=== PATIENT | male | born 1945 | race Caucasian/White ===

== ENCOUNTER 2016-12-31 09:47 | Inpatient (IN) | payer MEDICARE, BC ==
[2016-12-31] VITALS (12 sets, daily range): BP systolic 146–174; BP diastolic 85–93; PULSE 58–79; RESP 16–23; TEMP 97.6–98.9; O2SAT 95–99
[~2016-12-31] VITALS: Ht 188 cm; Wt 115.8 kg
--- NOTE | 2016-12-31 10:10 | PD ---
HPI Chief Complaint: Fall Time Seen by Provider: 09:58 Travel History International Travel<30 days: No Contact w/Intl Traveler<30days: No Traveled to known affect area: No History of Present Illness HPI 71yo M with PMH of HLD presents to the ED with c/o headache s/p fall yesterday at 3am. Pt was drinking water and loss his balance and fell backwards on hit his head on edge of j[place]uzzi. Pt denies any LOC but had occipital headache and did vomit once after. Pt felt better but started to have headache that is frontal this morning. Pt is still nauseous. Denies any fever, visual changes, focal weakness or numbness, chest pain, sob or abdominal pain. Pt denies any anticoagulation and takes aspirin 325mg PO daily. PFSH Past Medical History Hx Anticoagulant Therapy: No Cardiovascular Problems: Yes (CHOL) Diabetes: No Social History Tobacco Use: No Allergies-Medications (Allergen,Severity, Reaction): Coded Allergies: Ceftin (Verified Allergy, Severe, 12/31/16) Reported Meds & Prescriptions Reported Meds & Active Scripts Active Reported Flomax (Tamsulosin HCl) 0.4 Mg Cap 0.4 Mg PO HS Atorvastatin (Atorvastatin Calcium) 20 Mg Tab 20 Mg PO HS Omeprazole 20 Mg Tab 20 Mg PO DAILY Review of Systems Except as stated in HPI: all other systems reviewed are Neg Physical Exam Narrative GENERAL: 71yo M not in distress. SKIN: Warm and dry. HEAD: Atraumatic. Normocephalic. +TTP right frontal region. EYES: Pupils equal and reactive at 3mm. EOMI. No scleral icterus. No injection or drainage. ENT: No hemotympanum or septal hematoma. NECK: No midline cervical spine ttp. CARDIOVASCULAR: Regular rate and rhythm. No murmur appreciated. RESPIRATORY: No accessory muscle use. Clear to auscultation. Breath sounds equal bilaterally. GASTROINTESTINAL: Abdomen soft, non-tender, nondistended. MUSCULOSKELETAL: No obvious deformities. No clubbing. No cyanosis. No edema. NEUROLOGICAL: Awake and alert. No obvious cranial nerve deficits. Motor grossly within normal limits. Normal speech. PSYCHIATRIC: Appropriate mood and affect; insight and judgment normal. Data Data Last Documented VS Vital Signs Date Time Temp Pulse Resp B/P Pulse Ox O2 Delivery O2 Flow Rate FiO2 12/31/16 11:00 72 16 153/90 97 Room Air 12/31/16 09:[address] Brain W/O Iv Contrast(Rout) (12/31/16 ) Ondansetron Odt (Zofran Odt) (12/31/16 10:15) Complete Blood Count With Diff (12/31/16 10:53) Basic Metabolic Panel (Bmp) (12/31/16 10:53) Prothrombin Time / Inr (Pt) (12/31/16 10:53) Act Partial Throm Time (Ptt) (12/31/16 10:53) Type And Screen (12/31/16 10:53) Consult Neurosurgery (12/31/16 ) Neuro Checks . ORDERED (12/31/16 11:12) Acetaminophen (Tylenol) (12/31/16 11:15) Admit Order (Ed Use Only) (12/31/16 11:35) Labs Laboratory Tests Test 12/31/16 11:05 White Blood Count 8.9 TH/MM3 Red Blood Count 4.39 MIL/MM3 Hemoglobin 14.4 GM/DL Hematocrit 43.1 % Mean Corpuscular Volume 98.2 FL Mean Corpuscular Hemoglobin 32.8 PG Mean Corpuscular Hemoglobin 33.5 % Concent Red Cell Distribution Width 12.8 % Platelet Count 177 TH/MM3 Mean Platelet Volume 7.5 FL Neutrophils (%) (Auto) 84.2 % Lymphocytes (%) (Auto) 8.6 % Monocytes (%) (Auto) 5.5 % Eosinophils (%) (Auto) 1.0 % Basophils (%) (Auto) 0.7 % Neutrophils # (Auto) 7.4 TH/MM3 Lymphocytes # (Auto) 0.8 TH/MM3 Monocytes # (Auto) 0.5 TH/MM3 Eosinophils # (Auto) 0.1 TH/MM3 Basophils # (Auto) 0.1 TH/MM3 CBC Comment DIFF FINAL Differential Comment Prothrombin Time 11.0 SEC Prothromb Time International 1.0 RATIO Ratio Activated Partial 26.4 SEC Thromboplast Time Sodium Level 141 MEQ/L Potassium Level 3.5 MEQ/L Chloride Level 107 MEQ/L Carbon Dioxide Level 23.5 MEQ/L Anion Gap 11 MEQ/L Blood Urea Nitrogen 13 MG/DL Creatinine 0.85 MG/DL Estimat Glomerular Filtration 88 ML/MIN Rate Random Glucose 97 MG/DL Calcium Level 8.7 MG/DL Blood Type A POSITIVE Antibody Screen NEGATIVE Blood Bank Comment [facility] Medical Decision Making Medical Screen Exam Complete: Yes Emergency Medical Condition: Yes Differential Diagnosis ICH vs. contusion Narrative Course 71yo M with headache and nausea after falling and hitting his head on edge of [facility]. No focal neurologic deficit. Pt given zofran for nausea. Denies any anticoagulation. Only takes daily 325mg of aspirin. Pt given zofran and acetaminophen. CT brain showed acute right sided subdural hematoma measuring about 8mm in thickness with about 3mm right to left midline shift. Neuro checks ordered. Discussed with neurosurgery Dr. Posey who recommend transfer to [facility] ICU and observation. Labs reviewed, no leukocytosis. H/H stable. BMP unremarkable. Coagulation normal. Discussed with right of way supervisor Dr. Shin and accepted to his service. Waiting for transfer. Critical Care Narrative Aggregate critical care time was 35 minutes. Time to perform other separately billable procedures was not included in the critical care time. My time did not include minutes spent treating any other patients simultaneously or on activities that did not directly contribute to the patient's treatment. The services I provided to this patient were to treat and/or prevent clinically significant deterioration that could result in: cardiovascular collapse or . I provided critical care services requiring my management, as noted below: Chart data review, documentation time, medication orders and management, vital sign assessments/reviewing monitor data, ordering and reviewing lab tests, ordering and interpreting/reviewing x-rays and diagnostic studies, care of the patient and discussion of the patient with the admitting physicians. Diagnosis Primary Impression: Subdural hematoma Admitting Information Admitting Physician Requests: it Dominique Da Silva DO Dec 31, 2016 10:10
[2016-12-31] MEDS ORDERED: ONDANSETRON ODT 4 MG TAB PO ONE (10:15)
[2016-12-31] MEDS ORDERED: OMEP20TA PO (10:23)
[2016-12-31] MEDS ORDERED: ATOR20TA15 PO (10:23)
[2016-12-31] MEDS ORDERED: TAMS5CAP PO (10:24)
--- NOTE | 2016-12-31 10:48 | RADHPO ---
EXAM DATE/TIME: 12/31/2016 10:34 [facility] COMPARISON: No previous studies available for comparison. INDICATIONS : Trauma. Fell and hit head yesterday. Nausea. RADIATION DOSE: 65.23 CTDIvol (mGy) MEDICAL HISTORY : None SURGICAL HISTORY : None. ENCOUNTER: Initial ACUITY: 1 day PAIN SCALE: 8/10 LOCATION: cranial TECHNIQUE: Multiple contiguous axial images were obtained of the head. Using automated exposure control and adj ustment of the mA and/or kV according to patient size, radiation dose was kept as low as reasonably a chievable to obtain optimal diagnostic quality images. FINDINGS: There is an acute right-sided subdural hematoma measuring about 8 mm in thickness with some mass effe ct and mild midline shift of about 2 or 3 mm. No associated skull fracture identified. No hydrocephal us. CONCLUSION: 1. Acute right-sided subdural hematoma measuring about 8 mm in thickness with about 3 mm of right to left midline shift. Chema Salinas MD on December 31, 2016 at 10:45 Board Certified Radiologist. This report was verified electronically.
[2016-12-31 11:15] LABS: AUTOMATED NEUTROPHIL # 7.4 TH/MM3 (1.8-7.7); BASOPHIL # 0.1 TH/MM3 (0-0.2); BASOPHIL % 0.7 % (0.0-2.0); EOSINOPHIL # 0.1 TH/MM3 (0-0.4); HEMATOCRIT 43.1 % (39.0-51.0); LYMPH % 8.6 % (9.0-44.0); LYMPHOCYTE # 0.8 TH/MM3 (1.0-4.8); MEAN CELL VOLUME 98.2 FL (80.0-100.0); MEAN CORPUSCULAR HEMOGLOBIN 32.8 PG (27.0-34.0); MEAN CORPUSCULAR HGB CONC 33.5 % (32.0-36.0); MONO % 5.5 % (0.0-8.0); NEUT % 84.2 % (16.0-70.0); PLATELET COUNT 177 TH/MM3 (150-450); RED BLOOD COUNT 4.39 MIL/MM3 (4.50-5.90); RED CELL DISTRIBUTION WIDTH 12.8 % (11.6-17.2); WHITE BLOOD COUNT 8.9 TH/MM3 (4.0-11.0)
[2016-12-31] MEDS ORDERED: ACETAMINOPHEN 325 MG TAB PO ONE (11:15)
[2016-12-31 11:19] LABS: HEMO FLAGS DIFF FINAL
[2016-12-31 11:32] LABS: POTASSIUM 3.5 MEQ/L (3.5-5.1)
[2016-12-31 11:35] LABS: BICARBONATE 23.5 MEQ/L (21.0-32.0)
[2016-12-31 11:36] LABS: APTT (PATIENT) 26.4 SEC (24.3-30.1)
[2016-12-31] MEDS ORDERED: SODIUM CHLORIDE 0.9% FLUSH 5 ML FLUSH IV FLUSH PRN (15:00)
[2016-12-31] MEDS ORDERED: MORPHINE SULFATE 4 MG/ML INJ IV PRN (15:00)
[2016-12-31] MEDS ORDERED: MISCELLANEOUS NURSING INFORMATION XX SCH (15:00)
[2016-12-31] MEDS ORDERED: ACETAMINOPHEN/HYDROcodone 325 MG/5 MG TAB PO PRN (15:00)
[2016-12-31] MEDS ORDERED: RESP: ALBUTEROL 2.5 MG/IPRATROPIUM 0.5 MG NEB (PRN) INH (15:00)
[2016-12-31] MEDS ORDERED: CHLORHEXIDINE GLUCONATE 2 % 1 PACK (2 CLOTHS) TOP PRN (15:00)
[2016-12-31] MEDS ORDERED: ONDANSETRON HCL 4 MG/2 ML VIAL IV PUSH ONE (15:15)
[2016-12-31] MEDS: SODIUM CHLOR 0.9% 1000 ML INJ 1,000 ML IV SCH ×2 (15:22→22:51)
[2016-12-31] MEDS ORDERED: LABETALOL HCL 100 MG/20 ML VIAL ONE (16:29)
[2016-12-31] MEDS ORDERED: CALCIUM GLUCONATE INJ 1 GM in SODIUM CHLORIDE 0.9% INJ 100 ML IV PRN (16:45)
[2016-12-31] MEDS ORDERED: RESP: ALBUTEROL 2.5 MG/3 ML NEB (PRN) NEB (16:45)
[2016-12-31] MEDS ORDERED: niCARdipine INJ 25 MG in SODIUM CHLOR 0.9% 250 ML INJ 250 ML IV SCH (16:45)
[2016-12-31] MEDS ORDERED: cloNIDine HCL 0.1 MG TAB PO PRN (16:45)
[2016-12-31] MEDS ORDERED: SODIUM CHLORIDE 0.9% FLUSH 5 ML FLUSH IVF PRN (16:45)
[2016-12-31] MEDS ORDERED: ACETAMINOPHEN 325 MG TAB PO PRN (16:45)
[2016-12-31] MEDS ORDERED: POTASSIUM CHLOR 20 MEQ PREMIX 100 ML IV PRN (16:45)
[2016-12-31] MEDS ORDERED: MAGNESIUM SULFATE INJ 2 GM in SODIUM CHLORIDE 0.9% INJ 100 ML IV PRN (16:45)
[2016-12-31] MEDS ORDERED: LORazepam 2 MG/ML VIAL IVP PRN (16:45)
[2016-12-31] MEDS ORDERED: MAGNESIUM HYDROXIDE SUSP 30 ML CUP PO PRN (16:45)
[2016-12-31] MEDS ORDERED: ONDANSETRON HCL 4 MG/2 ML VIAL IV PRN (16:45)
[2016-12-31] MEDS ORDERED: ZOLPIDEM TARTRATE 5 MG TAB PO PRN (16:45)
[2016-12-31] MEDS ORDERED: MENTHOL LOZENGE SUCK-ON PRN (16:45)
[2016-12-31] MEDS ORDERED: BISACODYL 10 MG SUPP PR PRN (16:45)
[2016-12-31] MEDS ORDERED: ALUMINUM/MAGNESIUM/SIMETH 30 ML CUP PO PRN (16:45)
[2016-12-31] MEDS ORDERED: LABETALOL HCL 100 MG/20 ML VIAL IV PRN (16:45)
--- NOTE | 2016-12-31 16:48 | HHI.HP ---
HPI Service Critical Care Medicine Primary Care Physician Non-Staff Admission Diagnosis Acute right subdural hematoma Diagnosis: (1) Subdural hematoma Diagnosis: Principal (2) Hypertension Diagnosis: Secondary (3) Dyslipidemia Chief Complaint: Fall with acute SDH on right Travel History International Travel<30 Days: No Contact w/Intl Traveler <30 Da: No Traveled to Known Affected Are: No History of Present Illness Patient is a 71-year-old male with past medical history significant for dyslipidemia, BPH, GERD who presented to the ER after sustaining a fall yesterday. Apparently he was drinking water and loss his balance and fell backwards on hit his head on edge of [employer]. There was no loss of consciousness but had occipital headache and did vomit once after. He took approximately 4 tablets of 325 mg aspirin for headache. Patient felt better but started to have headache again this morning. He presented to the [facility] emergency department. CT brain showed acute right sided subdural hematoma measuring about 8mm in thickness with about 3mm right to left midline shift. Patient was transferred to [facility]. I evaluated the patient in ICU. He is GCS that 15, but no focal deficits, complains of intermittent headache. Discussed with Dr. Posey will repeat a CT of the head in a.m. No surgical interventions planned at this time, will keep systolic blood pressure less than 160. Ramyra for seizure prophylaxis Review of Systems ROS Limitations: Other (as per HPI) Past Family Social History Allergies: Coded Allergies: Ceftin (Verified Allergy, Severe, 12/31/16) Past Medical History Dyslipidemia GERD Alcohol abuse Past Surgical History None Reported Medications Flomax (Tamsulosin HCl) 0.4 Mg Cap 0.4 Mg PO HS Atorvastatin (Atorvastatin Calcium) 20 Mg Tab 20 Mg PO HS Omeprazole 20 Mg Tab 20 Mg PO DAILY Active Ordered Medications Reviewed Family History Noncontributory Social History No tobacco use Drinks 4 drinks of bourbon daily Physical Exam Vital Signs Vital Signs Date Time Temp Pulse Resp B/P Pulse Ox O2 Delivery O2 Flow Rate FiO2 12/31/16 15:34 72 16 156/87 98 12/31/16 14:55 68 16 152/87 96 Room Air 12/31/16 14:00 58 16 151/88 99 Room Air 12/31/16 12:59 70 16 155/92 97 Room Air 12/31/16 12:51 18 12/31/16 12:00 68 16 152/89 99 Room Air 12/31/16 11:00 72 16 153/90 97 Room Air 12/31/16 10:18 99 Room Air 12/31/16 09:51 97.6 74 16 146/93 95 Physical Exam GENERAL: 70-year-old male who is lying in bed in no acute distress SKIN: Warm and dry. HEAD: Atraumatic. Normocephalic. EYES: Pupils equal and reactive at 3mm. No scleral icterus. No injection or drainage. ENT: No hemotympanum or septal hematoma. NECK: No midline cervical spine tenderness. CARDIOVASCULAR: Regular rate and rhythm. No murmur appreciated. RESPIRATORY: No accessory muscle use. Clear to auscultation. Breath sounds equal bilaterally. GASTROINTESTINAL: Abdomen soft, non-tender, nondistended. MUSCULOSKELETAL: No obvious deformities. No clubbing. No cyanosis. No edema. NEUROLOGICAL: Awake and alert. No obvious cranial nerve deficits. Motor grossly within normal limits. Normal speech. Laboratory Laboratory Tests Test 12/31/16 11:05 White Blood Count 8.9 Red Blood Count 4.39 Hemoglobin 14.4 Hematocrit 43.1 Mean Corpuscular Volume 98.2 Mean Corpuscular Hemoglobin 32.8 Mean Corpuscular Hemoglobin 33.5 Concent Red Cell Distribution Width 12.8 Platelet Count 177 Mean Platelet Volume 7.5 Neutrophils (%) (Auto) 84.2 Lymphocytes (%) (Auto) 8.6 Monocytes (%) (Auto) 5.5 Eosinophils (%) (Auto) 1.0 Basophils (%) (Auto) 0.7 Neutrophils # (Auto) 7.4 Lymphocytes # (Auto) 0.8 Monocytes # (Auto) 0.5 Eosinophils # (Auto) 0.1 Basophils # (Auto) 0.1 CBC Comment DIFF FINAL Differential Comment Prothrombin Time 11.0 Prothromb Time International 1.0 Ratio Activated Partial 26.4 Thromboplast Time Sodium Level 141 Potassium Level 3.5 Chloride Level 107 Carbon Dioxide Level 23.5 Anion Gap 11 Blood Urea Nitrogen 13 Creatinine 0.85 Estimat Glomerular Filtration 88 Rate Random Glucose 97 Calcium Level 8.7 Blood Type A POSITIVE Antibody Screen NEGATIVE Blood Bank Comment Result Diagram: 12/31/16 1105 12/31/[address] of the head shows acute right subdural hemorrhage 8mm in size, with 3 mm midline shift Assessment and Plan Assessment and Plan NEURO: Traumatic right subdural hemorrhage with 3mm MLS Alcohol abuse -GCS is 15, monitor neuro status very closely. Discussed with neurosurgery Dr. Posey -Target systolic blood pressure less than 160 -Keep sodium more than 145, Repeat CT of the head in a.m. -Watch for alcohol withdrawal. Ativan when necessary for agitation withdrawal -Supplement thiamine -Thaxton and Morphine when necessary for pain control -Keppra for seizure prophylaxis RESP: -Nasal cannula oxygen -DuoNeb every 6 hours when necessary, aggressive pulmonary toilet CV: Hypertension Dyslipidemia -Normal saline IV fluids 125 ml per hour -Keep SBP<160 -Labetalol as necessary for SBP more than 160, use Cardene infusion as needed GI: -Heart healthy diet IV Protonix : -Monitor renal function closely. ID: -Monitor for infection HEME: -Monitor CBC, CMP ENDO: -Electrolyte replacement protocol PROPH: -Bilateral lower extremity SCDs. Avoid chemical DVT prophylaxis. Protonix for GI prophylaxis LINES: Utilize peripheral IVs, central line if needed Level 3 new consult Code Status FULL Discussed Condition With Dr. Posey Problem Qualifiers (1) Hypertension: Qualified Code: I15.9 - Secondary hypertension Nella Shin MD Dec 31, 2016 16:47
[2016-12-31] MEDS ORDERED: LABETALOL HCL 100 MG/20 ML VIAL IV ONE (17:00)
[2016-12-31] MEDS ORDERED: LABETALOL HCL 100 MG/20 ML VIAL IV PUSH PRN (17:00)
[2016-12-31] MEDS: levETIRAcetam 500 MG TAB PO SCH (17:14)
[2016-12-31] MEDS ORDERED: LORazepam 2 MG/ML VIAL IV PUSH PRN (17:45)
[2016-12-31] MEDS: ACETAMINOPHEN/HYDROcodone 325 MG/10 MG TAB PO PRN ×2 (18:05→22:36)
[2016-12-31] MEDS ORDERED: POTASSIUM CHLORIDE 20 MEQ CONTROLLED RELEASE TAB PO ONE (18:15)
[2016-12-31] MEDS: TAMSULOSIN HCL 0.4 MG CAP PO SCH (20:23)
[2016-12-31] MEDS: DOCUSATE SODIUM 100 MG CAP PO SCH (20:23)
[2016-12-31] MEDS: ATORVASTATIN 20 MG TAB PO SCH (20:23)
[2016-12-31] MEDS: FAMOTIDINE 20 MG TAB PO SCH (20:24)
--- NOTE | 2016-12-31 20:35 | MB ---
cc: RAMILA CARRANZA DATE OF CONSULTATION 12/31/16 REASON FOR CONSULTATION Right acute subdural hemorrhages. HISTORY OF PRESENT ILLNESS A 71-year-old right-handed gentleman who yesterday morning around 3:00 a.m. fell in his bathroom tripping on the bathtub and hit the back of his head with negative loss of consciousness. He went back to bed, an hour later woke up with a headache and vomiting. He subsequently yesterday morning went on a trip to [place] and, when he returned, he fell asleep and woke up this morning with severe headaches along with nausea. His brought him to [facility] emergency room and workup undertaken including CT scan of the head reveals an 8 mm right sided convexity subdural hemorrhage with about 3 mm [id number] midline shift. He was transferred to [facility] main intensive care unit for further management. PAST MEDICAL HISTORY 1. Hyperlipidemia, 2. Enlarged prostate, 3. Gastroesophageal reflux MEDICATIONS 1. Flomax 0.4 mg q.h.s. 2. Atorvastatin 20 mg q.h.s. 3. Omeprazole 20 mg daily. ALLERGIES CEFTIN - SOME TONGUE SWELLING AND LOSS OF TASTE. REVIEW OF SYSTEMS Complains of headache and initially was nauseous but received a medication for this and it has resolved. Denies any double vision or blurred vision. No numbness or paresthesias in the face, arms or legs. No chest pain or shortness of breath. No abdominal pain. No history of bleeding or bruising. No fevers or chills, no recent weight gain or weight loss. No incontinence. No unsteadiness, no weakness. LABORATORY FINDINGS PT 11, INR 1.0, PTT 26.4. White blood cell count 8.9, hemoglobin 14.4, platelet count 177. Sodium 141, potassium 3.5, BUN 13, creatinine 0.85, glucose 97. PHYSICAL EXAMINATION VITAL SIGNS: Temperature 97.6, pulse is 72, respiratory rate 16, blood pressure is 188/95. HEAD: No Zarate's or raccoon sign. NECK: Supple with no guarding or rigidity. CHEST: Clear to auscultation bilaterally HEART: Regular rate and rhythm, normal S1, S2. ABDOMEN: Soft, nontender. EXTREMITIES: No cyanosis, edema or deformity. NEUROLOGIC: He is awake, alert, oriented x3. Pupils equal, reactive. Extraocular muscles was intact. Face symmetric. Tongue is midline. Motor strength in the upper and lower extremities is 5/5. Negative Babinski. Appreciates light touch sensation bilaterally. Speech is fluent. IMPRESSION 1. Right frontotemporal parietal acute subdural hemorrhage with mild mass effect. 2. Unregulated hypertension. PLAN The patient will be monitored closely in the surgical intensive care unit with q1 neurologic checks and vitals. His hypertension will be regulated to keep the systolic blood pressure less than 160. His head of bed will kept elevated at 30 degrees. Sequential compression device will be used for DVT prophylaxis along with gastrointestinal stress ulcer prophylaxis. Followup CT scan of the head will be obtained tomorrow morning to rule out any progression of this subdural hemorrhage. At this point, the plan is conservative management unless it his subdural hemorrhage increases with worsening mass effect or change in neurologic status. I also discussed this with the patient's as well as Dr. Shin, the terrazzo installer. MD MARIELENA Mckee/ /4:42 PM /8:22 PM
[2016-12-31] MEDS ORDERED: SODIUM CHLORIDE 0.9% FLUSH 5 ML FLUSH IV FLUSH SCH (21:00)
[2016-12-31] MEDS: SODIUM CHLORIDE 0.9% FLUSH 5 ML FLUSH IVF SCH (21:00)
[2016-12-31] MEDS: MORPHINE SULFATE 4 MG/ML INJ IV PRN (23:15)
[2017-01-01] VITALS (11 sets, daily range): BP systolic 132–158; BP diastolic 62–93; PULSE 56–86; RESP 16–25; TEMP 97–99.2; O2SAT 93–97
[2017-01-01] MEDS: ONDANSETRON HCL 4 MG/2 ML VIAL IV PUSH PRN ×4 (02:20→22:12)
[2017-01-01 04:47] LABS: AUTOMATED NEUTROPHIL # 6.4 TH/MM3 (1.8-7.7); BASOPHIL % 0.4 % (0.0-2.0); EOSINOPHIL % 0.4 % (0.0-4.0); HEMATOCRIT 40.5 % (39.0-51.0); HEMO FLAGS DIFF FINAL; LYMPH % 9.8 % (9.0-44.0); LYMPHOCYTE # 0.8 TH/MM3 (1.0-4.8); MEAN CELL VOLUME 98.1 FL (80.0-100.0); MEAN CORPUSCULAR HEMOGLOBIN 33.5 PG (27.0-34.0); MEAN CORPUSCULAR HGB CONC 34.1 % (32.0-36.0); MONO % 10.2 % (0.0-8.0); NEUT % 79.2 % (16.0-70.0); PLATELET COUNT 161 TH/MM3 (150-450); RED BLOOD COUNT 4.13 MIL/MM3 (4.50-5.90); RED CELL DISTRIBUTION WIDTH 13.3 % (11.6-17.2)
[2017-01-01 05:08] LABS: BICARBONATE 25.9 MEQ/L (21.0-32.0); MAGNESIUM 1.8 MG/DL (1.5-2.5)
--- NOTE | 2017-01-01 05:08 | RADRPT ---
EXAM DATE/TIME: 01/01/2017 04:44 [facility] COMPARISON: CT BRAIN W/O CONTRAST, December 31, 2016, 10:34. INDICATIONS : Follow up right subdural hematoma with midline shift status post fall RADIATION DOSE: 56.35 CTDIvol (mGy) MEDICAL HISTORY : Cardiovascular disease. Hernia, hiatal. SURGICAL HISTORY : None. ENCOUNTER: Subsequent ACUITY: 2 days PAIN SCALE: 6/10 LOCATION: Right cranial TECHNIQUE: Multiple contiguous axial images were obtained of the head. Using automated exposure control and adj ustment of the mA and/or kV according to patient size, radiation dose was kept as low as reasonably a chievable to obtain optimal diagnostic quality images. FINDINGS: Right subdural hematoma is similar in size when compared to yesterday's exam. This measures 8 mm in the mid convexity parietal region. The subdural hematoma extends from the lowest to highest convexit y [id number] regions. There is 3 mm midline shift towards the left, similar to prio r. No new hemorrhages seen. The ventricles are symmetric in size. No extra axial blood in the left hemisphere. Posterior fossa structures are grossly intact. Wide windows for bony detail demonstrat e the calvarium to be intact. CONCLUSION: Stable size to the right subdural hematoma and stable 3 mm midline shift towards the left. Gurpreet Alejo MD on January 01, 2017 at 5:03 Board Certified Radiologist. This report was verified electronically.
[2017-01-01 05:10] LABS: ALT (GPT) 36 U/L (12-78); ANION GAP 9 MEQ/L (5-15); AST (GOT) 12 U/L (15-37); BICARBONATE 25.5 MEQ/L (21.0-32.0); BLOOD UREA NITROGEN 10 MG/DL (7-18); CHLORIDE 103 MEQ/L (98-107); GLOMERULAR FILTRATION RATE 91 ML/MIN (>89); SODIUM (NA) 137 MEQ/L (136-145)
[2017-01-01 05:12] LABS: ALKALINE PHOSPHATASE 79 U/L (45-117); TOTAL BILIRUBIN ADULT 1.1 MG/DL (0.2-1.0)
[2017-01-01] MEDS: levETIRAcetam 500 MG TAB PO SCH ×2 (05:17→16:40)
[2017-01-01] MEDS: CHLORHEXIDINE GLUCONATE 2 % 1 PACK (2 CLOTHS) TOP SCH ×2 (05:21→21:21)
[2017-01-01] MEDS: MORPHINE SULFATE 4 MG/ML INJ IV PRN (07:49)
[2017-01-01] MEDS ORDERED: PANTOPRAZOLE SOD 40 MG DELAYED RELEASE TAB PO SCH (09:00)
[2017-01-01] MEDS ORDERED: PANTOPRAZOLE SOD 20 MG DELAYED RELEASE TAB PO SCH (09:00)
[2017-01-01] MEDS ORDERED: PANTOPRAZOLE SODIUM 40 MG VIAL IV SCH (09:00)
--- NOTE | 2017-01-01 09:05 | HHI.NSPN ---
(Andrés Alvarez) History Chief Complaint: Right frontal headaches and nausea. (Andrés Alvarez) Interval History A 71-year-old right-handed gentleman who yesterday morning around 3:00 a.m. fell in his bathroom tripping on the bathtub and hit the back of his head with negative loss of consciousness. He went back to bed, an hour later woke up with a headache and vomiting. He subsequently yesterday morning went on a trip to [place] and, when he returned, he fell asleep and woke up this morning with severe headaches along with nausea. His brought him to [facility] emergency room and workup undertaken including CT scan of the head reveals an 8 mm right sided convexity subdural hemorrhage with about 3 mm [id number]-if-uixw midline shift. He was transferred to [facility] main intensive care unit for further management. 01/01/17: Pt awake and alert. Complains of right frontal headache and nausea. He states he had an episode of emesis when he was in CT. No numbness or paresthesias. No muscle weakness. Pt getting oob and ambulating to the bathroom. (Andrés Alvarez) Review of Systems General: Negative for: fever, chills, insomnia Respiratory: Negative for: shortness of breath, cough, sputum Cardiovascular: Negative for: chest pain Gastrointestinal: Positive for: nausea, vomitting, Negative for: diarrhea, constipation (Andrés Alvarez) Exam Results Vital Signs Date Time Temp Pulse Resp B/P Pulse Ox O2 Delivery O2 Flow Rate FiO2 01/01/17 08:00 61 01/01/17 08:00 Nasal Cannula 2.00 01/01/17 04:00 98.9 22 134/62 93 Intake and Output 12/31/16 12/31/16 01/01/17 08:00 16:00 00:00 Intake Total 905 ml Balance 905 ml (Andrés Alvarez) Physical Examination Resp: CTA bilaterally Heart: NSR no murmurs Abd: Soft positive bs Skin: No cyanosis or erythema Muscle: Moves all 4 extremities well. Symmetric strength. Neuro: Pt awake and alert. Follows commands well. Answers questions appropriately. Pupils 3mm bilaterally reactive bilaterally. (Andrés Alvarez) Lab, Micro, Other Results Last Impressions Head CT 01/01/17 0600 Signed Impressions: Service Date/Time: Sunday, January 01, 2017 04:44 - CONCLUSION: Stable size to the right subdural hematoma and stable 3 mm midline shift towards the left. Gurpreet Alejo MD Laboratory Tests Test 12/31/16 12/31/16 01/01/17 11:05 18:00 04:29 White Blood Count 8.9 TH/MM3 8.0 TH/MM3 Red Blood Count 4.39 MIL/MM3 4.13 MIL/MM3 Hemoglobin 14.4 GM/DL 13.8 GM/DL Hematocrit 43.1 % 40.5 % Mean Corpuscular Volume 98.2 FL 98.1 FL Mean Corpuscular Hemoglobin 32.8 PG 33.5 PG Mean Corpuscular Hemoglobin 33.5 % 34.1 % Concent Red Cell Distribution Width 12.8 % 13.3 % Platelet Count 177 TH/MM3 161 TH/MM3 Mean Platelet Volume 7.5 FL 7.5 FL Neutrophils (%) (Auto) 84.2 % 79.2 % Lymphocytes (%) (Auto) 8.6 % 9.8 % Monocytes (%) (Auto) 5.5 % 10.2 % Eosinophils (%) (Auto) 1.0 % 0.4 % Basophils (%) (Auto) 0.7 % 0.4 % Neutrophils # (Auto) 7.4 TH/MM3 6.4 TH/MM3 Lymphocytes # (Auto) 0.8 TH/MM3 0.8 TH/MM3 Monocytes # (Auto) 0.5 TH/MM3 0.8 TH/MM3 Eosinophils # (Auto) 0.1 TH/MM3 0.0 TH/MM3 Basophils # (Auto) 0.1 TH/MM3 0.0 TH/MM3 CBC Comment DIFF FINAL DIFF FINAL Differential Comment Prothrombin Time 11.0 SEC Prothromb Time International 1.0 RATIO Ratio Activated Partial 26.4 SEC Thromboplast Time Sodium Level 141 MEQ/L 138 MEQ/L Potassium Level 3.5 MEQ/L 4.0 MEQ/L Chloride Level 107 MEQ/L 104 MEQ/L Carbon Dioxide Level 23.5 MEQ/L 25.9 MEQ/L Anion Gap 11 MEQ/L 8 MEQ/L Blood Urea Nitrogen 13 MG/DL 10 MG/DL Creatinine 0.85 MG/DL 0.81 MG/DL Estimat Glomerular Filtration 88 ML/MIN 93 ML/MIN Rate Random Glucose 97 MG/DL 108 MG/DL Calcium Level 8.7 MG/DL 8.4 MG/DL Blood Type A POSITIVE Antibody Screen NEGATIVE Blood Bank Comment Nasal Screen MRSA (PCR) NEGATIVE Magnesium Level 1.8 MG/DL Total Bilirubin 1.1 MG/DL Aspartate Amino Transf 12 U/L (AST/SGOT) Alanine Aminotransferase 36 U/L (ALT/SGPT) Alkaline Phosphatase 79 U/L Total Protein 6.6 GM/DL Albumin 3.3 GM/DL 12/31/16 12/31/16 01/01/17 15:00 23:00 07:00 Intake Total 905 ml 907 ml Balance 905 ml 907 ml Intake Oral 240 ml 480 ml IV Total 665 ml 427 ml # Voids 2 3 (Andrés Alvarez) Medical Decision Making Impression and Plan A: 71 y/o M s/p right frontotemporal parietal acute subdural hemorrhage with mild mass effect. 2. Unregulated hypertension. PLAN Continue with nausea control Continue with Neuro checks. Increase activity with assistance. (Andrés Alvarez) Attending Statement The exam, history, and the medical decision-making described in the above note were completed with the assistance of the mid-level provider. I reviewed and agree with the findings presented. I attest that I had a [id number] encounter with the patient on the same day, and personally performed and documented my assessment and findings in the medical record. Complains of mild headache and persistent nausea. Has been ambulating to the bathroom. Hypertension controlled. Follow-up CT scan had stable right subdural hemorrhage. Okay for floor transfer and possible discharge in the next day or so if nausea resolves and is taking by mouth well. (Rahat Posey MD) Andrés Alvarez Jan 01, 2017 09:05 Rahat Posey MD Jan 01, 2017 10:34
[2017-01-01] MEDS: DOCUSATE SODIUM 100 MG CAP PO SCH ×2 (09:10→21:04)
[2017-01-01] MEDS: FAMOTIDINE 20 MG TAB PO SCH ×2 (09:10→21:05)
[2017-01-01] MEDS: THIAMINE INJ 100 MG in SODIUM CHLORIDE 0.9% INJ 100 ML IV SCH (09:11)
[2017-01-01] MEDS: SODIUM CHLORIDE 0.9% FLUSH 5 ML FLUSH IVF SCH ×2 (09:11→21:00)
[2017-01-01] MEDS: ACETAMINOPHEN/HYDROcodone 325 MG/10 MG TAB PO PRN ×3 (10:52→21:49)
[2017-01-01] MEDS: SODIUM CHLOR 0.9% 1000 ML INJ 1,000 ML IV SCH (15:01)
--- NOTE | 2017-01-01 16:14 | HHI.CCPN ---
Subjective Remarks/Hospital Course Patient is a 71-year-old male with past medical history significant for dyslipidemia, BPH, GERD who presented to the ER after sustaining a fall yesterday. Apparently he was drinking water and loss his balance and fell backwards on hit his head on edge of [facility]. There was no loss of consciousness but had occipital headache and did vomit once after. He took approximately 4 tablets of 325 mg aspirin for headache. Patient felt better but started to have headache again this morning. He presented to the [place] emergency department. CT brain showed acute right sided subdural hematoma measuring about 8mm in thickness with about 3mm right to left midline shift. Patient was transferred to [facility]. I evaluated the patient in ICU. He is GCS that 15, but no focal deficits, complains of intermittent headache. Discussed with Dr. Posey will repeat a CT of the head in a.m. No surgical interventions planned at this time, will keep systolic blood pressure less than 160. Keppra for seizure prophylaxis Subjective 01/01: Afebrile. Headache appears controlled. No more further nausea. Blood pressures currently controlled. Okay to transfer to floor. Objective Vital Signs Date Time Temp Pulse Resp B/P Pulse Ox O2 Delivery O2 Flow Rate FiO2 01/01/17 14:00 60 01/01/17 12:00 98.3 20 142/78 93 01/01/17 08:00 Nasal Cannula 2.00 Intake and Output 12/31/16 12/31/16 01/01/17 08:00 16:00 00:00 Intake Total 905 ml Balance 905 ml Result Diagram: 01/01/17 0429 01/01/17 0429 Imaging Last Impressions Head CT 01/01/17 0600 Signed Impressions: Service Date/Time: Sunday, January 01, 2017 04:44 - CONCLUSION: Stable size to the right subdural hematoma and stable 3 mm midline shift towards the left. Gurpreet Alejo MD Objective Remarks GENERAL: 70-year-old male who is lying in bed in no acute distress SKIN: Warm and dry. HEAD: Atraumatic. Normocephalic. EYES: Pupils equal and reactive at 3mm. No scleral icterus. No injection or drainage. ENT: No epistaxis. No bleeding gums or oral lesions. NECK: No midline cervical spine tenderness. Supple. CARDIOVASCULAR: Regular rate and rhythm. No murmur appreciated. RESPIRATORY: No accessory muscle use. Clear to auscultation. Breath sounds equal bilaterally. GASTROINTESTINAL: Abdomen soft, non-tender, nondistended. MUSCULOSKELETAL: No obvious deformities. No significant peripheral edema. NEUROLOGICAL: Awake and alert. No obvious cranial nerve deficits. Motor grossly within normal limits. Normal sensation. Normal speech. A/P Assessment and Plan NEURO: Traumatic right subdural hemorrhage with 3mm MLS Alcohol abuse -GCS is 15, monitor neuro status very closely. Discussed with neurosurgery Dr. Posey -Target systolic blood pressure less than 160 -Keep sodium more than 145, -Watch for alcohol withdrawal. Ativan when necessary for agitation withdrawal -Supplement thiamine -Gracey and Morphine when necessary for pain control -Keppra for seizure prophylaxis RESP: -Nasal cannula oxygen -DuoNeb every 6 hours when necessary, aggressive pulmonary toilet CV: Hypertension Dyslipidemia -Normal saline IV fluids 75 ml per hour -Keep SBP<160 -Labetalol as necessary for SBP more than 160 Continue atorvastatin 20 mEq by mouth daily GI: -Heart healthy diet Pepcid 20 mg twice a day on Prilosec 20 mg by mouth daily at home. : BPH Continue Flomax 0.4 mill grams by mouth daily -Monitor renal function closely. ID: -Monitor for infection HEME: -Monitor CBC, CMP ENDO: -Electrolyte replacement protocol if clinically indicated PROPH: -Bilateral lower extremity SCDs. Avoid chemical DVT prophylaxis. Protonix for GI prophylaxis LINES: Utilize peripheral IVs, central line if needed Level II Patient is stable from a critical care medicine standpoint. We'll transfer to floor and assign care to hospitalist in a.m. 01/02 Simeon Ingram MD Jan 01, 2017 16:14
[2017-01-01] MEDS: TAMSULOSIN HCL 0.4 MG CAP PO SCH (21:05)
[2017-01-01] MEDS: ATORVASTATIN 20 MG TAB PO SCH (21:05)
[2017-01-02] VITALS: BP 149/80; PULSE 64; RESP 18; TEMP 97.6; O2SAT 95
[2017-01-02] MEDS: SODIUM CHLOR 0.9% 1000 ML INJ 1,000 ML IV SCH (02:29)
[2017-01-02] MEDS: ACETAMINOPHEN/HYDROcodone 325 MG/10 MG TAB PO PRN ×2 (03:18→09:05)
[2017-01-02] MEDS: ONDANSETRON HCL 4 MG/2 ML VIAL IV PUSH PRN ×2 (03:19→09:05)
[2017-01-02 04:00] VITALS: BP 151/91; PULSE 62; RESP 20; TEMP 98.7; O2SAT 94
[2017-01-02] MEDS: levETIRAcetam 500 MG TAB PO SCH (05:00)
[2017-01-02 08:00] VITALS: BP 142/81; PULSE 55; RESP 20; TEMP 96.5; O2SAT 96
[2017-01-02] MEDS ORDERED: FOLIC ACID 1 MG TAB PO SCH (09:00)
[2017-01-02] MEDS ORDERED: MULTIVITAMIN TAB PO SCH (09:00)
[2017-01-02] MEDS: THIAMINE INJ 100 MG in SODIUM CHLORIDE 0.9% INJ 100 ML IV SCH (09:00)
[2017-01-02] MEDS: FAMOTIDINE 20 MG TAB PO SCH (09:04)
[2017-01-02] MEDS: DOCUSATE SODIUM 100 MG CAP PO SCH (09:04)
[2017-01-02] MEDS: SODIUM CHLORIDE 0.9% FLUSH 5 ML FLUSH IVF SCH (09:04)
--- NOTE | 2017-01-02 09:10 | HHI.PR ---
Subjective Remarks This is a pleasant 71 y/o male with BPH, GERD, who came to ER with status post fall, with secondary head trauma no loss of consciousness, Occipital headache, with vomit, took 4 tablets of Aspirin for headache, CT brain showed acute right sided subdural hematoma measuring about 8mm in thickness with about 3mm right to left midline shift. The patient has Hyperlipidemia, Alcohol abuse, admitted to Intensive Care Unit and today seen by Neurosurgery specialist Doctor Rahat Posey recommended due to Right frontotemporal parietal acute subdural Hemorrhage with mild mass, with stable follow CT scan recommended cleared for discharge at this time, and recommended to follow with CT scan of the head in two weeks, if his symptoms worsen his was instructed to come to Emergency Room immediately. Objective Vital Signs Date Time Temp Pulse Resp B/P Pulse Ox O2 Delivery O2 Flow Rate FiO2 01/02/17 08:00 96 Nasal Cannula 1.00 01/02/17 05:24 18 01/02/17 04:00 98.7 62 20 151/91 94 01/02/17 00:00 97.6 64 18 149/80 95 01/01/17 23:26 18 01/01/17 20:00 97.9 69 20 158/77 93 01/01/17 17:40 97.0 63 16 158/93 97 01/01/17 16:00 99.2 60 22 133/69 97 01/01/17 16:00 60 01/01/17 14:00 60 01/01/17 12:00 56 01/01/17 12:00 98.3 56 20 142/78 93 01/01/17 10:00 74 I/O 01/01/17 01/01/17 01/01/17 01/02/17 01/02/17 01/02/17 07:00 15:00 23:00 07:00 15:00 23:00 Intake Total 907 ml 963 ml 360 ml Balance 907 ml 963 ml 360 ml Intake Oral 480 ml 240 ml 360 ml IV Total 427 ml 723 ml # Voids 3 3 3 # Bowel Movements 0 Result Diagram: 01/01/17 0429 01/01/17 0429 Imaging Last Impressions Head CT 01/01/17 0600 Signed Impressions: Service Date/Time: Sunday, January 01, 2017 04:44 - CONCLUSION: Stable size to the right subdural hematoma and stable 3 mm midline shift towards the left. Gurpreet Alejo MD Procedures No procedures performed to the patient. Other Results Laboratory Tests Test 12/31/16 12/31/16 01/01/17 11:05 18:00 04:29 Prothrombin Time 11.0 SEC Prothromb Time International 1.0 RATIO Ratio Activated Partial 26.4 SEC Thromboplast Time Blood Type A POSITIVE Antibody Screen NEGATIVE Blood Bank Comment Nasal Screen MRSA (PCR) NEGATIVE White Blood Count 8.0 TH/MM3 Red Blood Count 4.13 MIL/MM3 Hemoglobin 13.8 GM/DL Hematocrit 40.5 % Mean Corpuscular Volume 98.1 FL Mean Corpuscular Hemoglobin 33.5 PG Mean Corpuscular Hemoglobin 34.1 % Concent Red Cell Distribution Width 13.3 % Platelet Count 161 TH/MM3 Mean Platelet Volume 7.5 FL Neutrophils (%) (Auto) 79.2 % Lymphocytes (%) (Auto) 9.8 % Monocytes (%) (Auto) 10.2 % Eosinophils (%) (Auto) 0.4 % Basophils (%) (Auto) 0.4 % Neutrophils # (Auto) 6.4 TH/MM3 Lymphocytes # (Auto) 0.8 TH/MM3 Monocytes # (Auto) 0.8 TH/MM3 Eosinophils # (Auto) 0.0 TH/MM3 Basophils # (Auto) 0.0 TH/MM3 CBC Comment DIFF FINAL Differential Comment Sodium Level 138 MEQ/L Potassium Level 4.0 MEQ/L Chloride Level 104 MEQ/L Carbon Dioxide Level 25.9 MEQ/L Anion Gap 8 MEQ/L Blood Urea Nitrogen 10 MG/DL Creatinine 0.81 MG/DL Estimat Glomerular Filtration 93 ML/MIN Rate Random Glucose 108 MG/DL Calcium Level 8.4 MG/DL Magnesium Level 1.8 MG/DL Total Bilirubin 1.1 MG/DL Aspartate Amino Transf 12 U/L (AST/SGOT) Alanine Aminotransferase 36 U/L (ALT/SGPT) Alkaline Phosphatase 79 U/L Total Protein 6.6 GM/DL Albumin 3.3 GM/DL Objective Remarks GENERAL: No acute distress SKIN: Warm and dry. HEAD: Atraumatic. Normocephalic. EYES: Pupils equal and reactive at 3mm. No scleral icterus. No injection or drainage. ENT: No hemotympanum or septal hematoma. NECK: No midline cervical spine tenderness. CARDIOVASCULAR: Regular rate and rhythm. No murmur appreciated. RESPIRATORY: No accessory muscle use. Clear to auscultation. Breath sounds equal bilaterally. GASTROINTESTINAL: Abdomen soft, non-tender, nondistended. MUSCULOSKELETAL: No obvious deformities. No clubbing. No cyanosis. No edema. NEUROLOGICAL: Awake and alert. No obvious cranial nerve deficits. Motor grossly within normal limits. Normal speech. Medications and IVs Current Medications Medications (Trade) Dose Ordered Sig/Amrit Route Start Time Stop Time Status Last Admin (NS 1000 ml Inj) 1,000 ml @ 75 mls/hr [id number] IV 12/31/16 14:51 01/02/17 02:29 Miscellaneous Information 1 [id number] XX 12/31/16 15:00 01/01/17 09:00 (Chlorhexidine 2% Cloth) 3 pack Taper DAILY@04 TOP 01/01/17 04:00 12/28/17 03:59 01/01/17 05:21 (Chlorhexidine 2% Cloth) 3 pack UNSCH PRN TOP 12/31/16 15:00 (NS Flush) 2 ml UNSCH PRN IVF 12/31/16 16:45 (NS Flush) 2 ml BID IVF 12/31/16 21:00 01/01/17 21:00 (Keppra) 500 mg Q12H PO 12/31/16 17:00 01/02/17 05:00 (Ativan Inj) 1 mg Q1H PRN IVP 12/31/16 16:45 (Dulcolax Supp) 10 mg DAILY PRN PA 12/31/16 16:45 (Colace) 100 mg BID PO 12/31/16 21:00 01/01/17 21:04 (Milk Of Magnesia Liq) 30 ml DAILY PRN PO 12/31/16 16:45 (Mag-Al Plus Susp Liq) 30 ml Q6H PRN PO 12/31/16 16:45 Ondansetron HCl 4 mg 4 mg Q6H PRN IV 12/31/16 16:45 12/31/16 18:16 Calcium Gluconate 1 gm/Sodium Chloride 110 ml @ 110 mls/hr UNSCH PRN IV 12/31/16 16:45 Potassium Chloride 100 ml @ 50 mls/hr UNSCH PRN IV 12/31/16 16:45 (Magnesium Sulfate Inj/NS Inj) 104 ml @ 100 mls/hr UNSCH PRN IV 12/31/16 16:45 (Greenwood 10-325 Mg) 1 tab Q4H PRN PO 12/31/16 16:45 01/01/17 21:49 (Greenwood 10-325 Mg) 2 tab Q4H PRN PO 12/31/16 16:45 01/02/17 03:18 (Morphine Inj) 2 mg Q2H PRN IV 12/31/16 16:45 01/01/17 07:49 (Trandate Inj) 10 mg Q1H PRN IV 12/31/16 16:45 (Catapres) 0.1 mg Q6H PRN PO 12/31/16 16:45 (Tylenol) 650 mg Q4H PRN PO 12/31/16 16:45 (Gilead Lakesha) 1 lozenge UNSCH PRN SUCK-ON 12/31/16 16:45 (Ambien) 5 mg HS PRN PO 12/31/16 16:45 (Pepcid) 20 mg Q12HR PO 12/31/16 21:00 01/01/17 21:05 (Lipitor) 20 mg HS PO 12/31/16 21:00 01/01/17 21:05 (Flomax) 0.4 mg HS PO 12/31/16 21:00 01/01/17 21:05 Lorazepam 1 mg 1 mg Q4H PRN IV PUSH 12/31/16 17:45 (Thiamine Inj/NS Inj) 101 ml @ 101 mls/hr DAILY IV 12/31/16 18:00 01/01/17 09:11 (Zofran Inj) 4 mg Q4H PRN IV PUSH 12/31/16 18:15 01/02/17 03:19 (Theragran) 1 tab DAILY PO 01/02/17 09:00 (Folate) 1 mg DAILY PO 01/02/17 09:00 A/P Assessment and Plan 1. Traumatic right subdural Hemorrhage with 3 mm Mid line Shift MLS, Neurosurgery following Target systolic blood pressure less than 160 mm Hg. as per Doctor on [facility] protocol, Supplemental Thiamine, Pain medicine, Keppra for Seizure prophylaxis. as per His Primary Neurosurgery specialist doctor Rahat Posey who discussed also with Nurse Miss Decker recommended with Diagnosis of Right frontotemporal parietal acute subdural Hemorrhage with Mild mass with stable follow CT scan, cleared by Neurosurgery going home and get CT scan in two weeks and his instructed if his symptoms worsen to come to Emergency room Immediately. 2. Alcohol Abuse on CIWA protocol, no signs of withdrawal strongly recommended to stop drinking alcohol 3. Hypertension controlled 4. Hyperlipidemia continue home medicines. -Bilateral lower extremity SCDs. Avoid chemical DVT prophylaxis. Protonix for GI prophylaxis Code Status FULL Discussed with Patient and His , read full note by Doctor Kalpesh , discussed with nurse Miss Decker Discharge Planning as per Neurosurgery to discharge now. Jalen Chatterjee MD Jan 02, 2017 09:10
--- NOTE | 2017-01-02 11:29 | HHI.NSPN ---
History Chief Complaint: States headache and nausea are improved Interval History 71-year-old right-handed gentleman who yesterday morning around 3:00 a.m. fell in his bathroom tripping on the bathtub and hit the back of his head with negative loss of consciousness. He went back to bed, an hour later woke up with a headache and vomiting. He subsequently yesterday morning went on a trip to [place] and, when he returned, he fell asleep and woke up this morning with severe headaches along with nausea. His brought him to [facility] emergency room and workup undertaken including CT scan of the head reveals an 8 mm right sided convexity subdural hemorrhage with about 3 mm [id number] midline shift. He was transferred to [facility] main intensive care unit for further management. 01/01/17: Pt awake and alert. Complains of right frontal headache and nausea. He states he had an episode of emesis when he was in CT. No numbness or paresthesias. No muscle weakness. Pt getting oob and ambulating to the bathroom. 01/02/17: Relates headache and nausea 80% better today. Comfortable with the when necessary Lortab use. Ambulating independently and voiding well. Patient and requested discharge home. Exam Results Vital Signs Date Time Temp Pulse Resp B/P Pulse Ox O2 Delivery O2 Flow Rate FiO2 01/02/17 08:00 96.5 55 20 142/81 96 01/02/17 08:00 Nasal Cannula 1.00 Intake and Output 01/01/17 01/01/17 01/02/17 08:00 16:00 00:00 Intake Total 907 ml 963 ml 360 ml Balance 907 ml 963 ml 360 ml Physical Examination GENERAL: Well-nourished, well-developed patient. SKIN: Warm and dry. HEAD: No bilateral's or clonus sign EYES: No scleral icterus. No injection or drainage. ENT: No nasal drainage noted. Mucous membranes pink. Airway patent. NECK: Supple, trachea midline. No JVD. CARDIOVASCULAR: Regular rate and rhythm without murmurs, gallops, or rubs. RESPIRATORY: Breath sounds equal bilaterally. No accessory muscle use. GASTROINTESTINAL: Abdomen soft, non-tender, nondistended. EXTREMITIES: No cyanosis or edema. BACK: Nontender without obvious deformity. No CVA tenderness. NEUROLOGICAL: Awake and alert. Pupils Equal and reactive. EOMI. Face symmetric. Tongue midline. Cranial nerves II through XII intact. Motor and sensory grossly within normal limits. Five out of 5 muscle strength in all muscle groups. Normal speech. Normal comprehension. DTR's symmetric. Negative Saul' s reflex. Negative Babinski. Ambulating independently. Voiding well Medical Decision Making Impression and Plan 1. 71 y/o M s/p right frontotemporal parietal acute subdural hemorrhage with mild mass effect. Stable follow-up CT scan of the head 2. Hypertension well-controlled. He is doing well from a clinical standpoint and is cleared to be discharged home from a neurosurgical standpoint. Recommend follow-up in the office with CT of the head in 2 weeks intermittently resolutions of her hemorrhage. His symptoms worsen the interim he and his were instructed to come to the emergency room immediately. Rahat Posey MD Jan 02, 2017 11:29
[2017-01-02] MEDS ORDERED: HYDR-3366 PO (11:34)
[2017-01-02 12:00] VITALS: BP 146/90; PULSE 57; RESP 20; TEMP 95.8; O2SAT 96
[2017-01-02] MEDS ORDERED: ZOFR4TAB PO ×2 (12:03→12:04)
--- NOTE | 2017-01-02 12:09 | HHI.DS ---
Discharge Summary Admission Date Dec 31, 2016 at 11:37 Discharge Date: Jan 02, 2017 Admitting Diagnosis Acute right subdural hematoma (1) Subdural hematoma ICD Code: I62.00 Diagnosis: Principal (2) Hypertension ICD Code: I10 Diagnosis: Secondary (3) Dyslipidemia ICD Code: E78.5 Procedures No procedures performed to the patient. Brief History - From Admission Patient is a 71-year-old male with past medical history significant for dyslipidemia, BPH, GERD who presented to the ER after sustaining a fall yesterday. Apparently he was drinking water and loss his balance and fell backwards on hit his head on edge of [facility]. There was no loss of consciousness but had occipital headache and did vomit once after. He took approximately 4 tablets of 325 mg aspirin for headache. Patient felt better but started to have headache again this morning. He presented to the [place] emergency department. CT brain showed acute right sided subdural hematoma measuring about 8mm in thickness with about 3mm right to left midline shift. Patient was transferred to [facility]. I evaluated the patient in ICU. He is GCS that 15, but no focal deficits, complains of intermittent headache. Discussed with Dr. Posey will repeat a CT of the head in a.m. No surgical interventions planned at this time, will keep systolic blood pressure less than 160. Joeppra for seizure prophylaxis CBC/BMP: 01/01/17 0429 01/01/17 0429 Significant Findings Laboratory Tests Test 12/31/16 01/01/17 11:05 04:29 Red Blood Count 4.39 MIL/MM3 4.13 MIL/MM3 (4.50-5.90) (4.50-5.90) Neutrophils (%) (Auto) 84.2 % 79.2 % (16.0-70.0) (16.0-70.0) Lymphocytes (%) (Auto) 8.6 % (9.0-44.0) Lymphocytes # (Auto) 0.8 TH/MM3 0.8 TH/MM3 (1.0-4.8) (1.0-4.8) Estimat Glomerular Filtration 88 ML/MIN (>89) Rate Monocytes (%) (Auto) 10.2 % (0.0-8.0) Random Glucose 108 MG/DL (74-106) Calcium Level 8.4 MG/DL (8.5-10.1) Total Bilirubin 1.1 MG/DL (0.2-1.0) Aspartate Amino Transf 12 U/L (15-37) (AST/SGOT) Albumin 3.3 GM/DL (3.4-5.0) Imaging Last Impressions Head CT 01/01/17 0600 Signed Impressions: Service Date/Time: Sunday, January 01, 2017 04:44 - CONCLUSION: Stable size to the right subdural hematoma and stable 3 mm midline shift towards the left. Gurpreet Alejo MD PE at Discharge GENERAL: No acute distress SKIN: Warm and dry. HEAD: Atraumatic. Normocephalic. EYES: Pupils equal and reactive at 3mm. No scleral icterus. No injection or drainage. ENT: No hemotympanum or septal hematoma. NECK: No midline cervical spine tenderness. CARDIOVASCULAR: Regular rate and rhythm. No murmur appreciated. RESPIRATORY: No accessory muscle use. Clear to auscultation. Breath sounds equal bilaterally. GASTROINTESTINAL: Abdomen soft, non-tender, nondistended. MUSCULOSKELETAL: No obvious deformities. No clubbing. No cyanosis. No edema. NEUROLOGICAL: Awake and alert. No obvious cranial nerve deficits. Motor grossly within normal limits. Normal speech. Hospital Course This is a pleasant 71 y/o male with BPH, GERD, who came to ER with status post fall, with secondary head trauma no loss of consciousness, Occipital headache, with vomit, took 4 tablets of Aspirin for headache, CT brain showed acute right sided subdural hematoma measuring about 8mm in thickness with about 3mm right to left midline shift. The patient has Hyperlipidemia, Alcohol abuse, admitted to Intensive Care Unit and today seen by Neurosurgery specialist Doctor Rahat Posey recommended due to Right frontotemporal parietal acute subdural Hemorrhage with mild mass, with stable follow CT scan recommended cleared for discharge at this time, and recommended to follow with CT scan of the head in two weeks, if his symptoms worsen his was instructed to come to Emergency Room immediately. Assessment and Plan 1. Traumatic right subdural Hemorrhage with 3 mm Mid line Shift MLS, Neurosurgery following Target systolic blood pressure less than 160 mm Hg. as per Doctor on CIWA protocol, Supplemental Thiamine, Pain medicine, Keppra for Seizure prophylaxis. as per His Primary Neurosurgery specialist doctor Rahat Posey who discussed also with Nurse Miss Decker recommended with Diagnosis of Right frontotemporal parietal acute subdural Hemorrhage with Mild mass with stable follow CT scan, cleared by Neurosurgery going home and get CT scan in two weeks and his instructed if his symptoms worsen to come to Emergency room Immediately. 2. Alcohol Abuse on [facility] protocol, no signs of withdrawal strongly recommended to stop drinking alcohol 3. Hypertension controlled 4. Hyperlipidemia continue home medicines. -Bilateral lower extremity SCDs. Avoid chemical DVT prophylaxis. Protonix for GI prophylaxis Code Status FULL Discussed with Patient and His , read full note by Doctor Posey , discussed with nurse Miss Decker Discharge Planning as per Neurosurgery to discharge now. Pt Condition on Discharge: Good Discharge Disposition: Discharge Home Discharge Time: <= 30 minutes Discharge Instructions DIET: Follow Instructions for: Heart Healthy Diet Activities you can perform: Regular-No Restrictions Other Activity Instructions: No Strenuous Exercise. Jalen Chatterjee MD Jan 02, 2017 12:09
[2017-01-18] MEDS ORDERED: LEVE500 PO (12:52)
== END 2017-01-02 12:34 | disposition home or self-care (01) | DRG 87 ==
LOC: PHED 09:47 → PHEDA 11:37 → N03A 16:11 → N05B 01-01 17:25
PROVIDERS: ADMIT Internal Medicine; ATTEND Internal Medicine
DX: S06.5X0A Traumatic subdural hemorrhage without loss of consciousness, initial encounter (principal); I10 Essential (primary) hypertension; E78.5 Hyperlipidemia, unspecified; K21.9 Gastro-esophageal reflux disease without esophagitis; N40.0 Benign prostatic hyperplasia without lower urinary tract symptoms; F10.10 Alcohol abuse, uncomplicated; W18.09XA Striking against other object with subsequent fall, initial encounter; Y92.002 Bathroom of unspecified non-institutional (private) residence as the place of occurrence of the external cause
CPT/HCPCS: 70450; 80048; 80053; 83735; 85025; 85610; 85730; 86850; 86900; 86901; 87641; 94150; J2270; J2405; J3411; J7030

== ENCOUNTER 2017-01-08 10:38 | Inpatient (IN) | payer MEDICARE, BC ==
[2017-01-08] VITALS (10 sets, daily range): BP systolic 130–148; BP diastolic 60–91; PULSE 54–76; RESP 15–23; TEMP 97.9–98.1; O2SAT 97–100
[~2017-01-08] VITALS: Ht 188 cm; Wt 103.8 kg
[~2017-01-08 10:38] MED LIST: ATOR20TA15 PO; HYDR-3366 PO; OMEP20TA PO; TAMS5CAP PO; ZOFR4TAB PO
[2017-01-08] MEDS ORDERED: SODIUM CHLOR 0.9% 1000 ML INJ 1,000 ML IV ONE (11:20)
[2017-01-08] MEDS ORDERED: diphenhydrAMINE HCL 50 MG/ML VIAL IVP ONE (11:30)
[2017-01-08] MEDS ORDERED: PROCHLORPERAZINE INJ 10 MG/2 ML VIAL IVP ONE (11:30)
[2017-01-08] MEDS ORDERED: SODIUM CHLORIDE 0.9% FLUSH 5 ML FLUSH IVF PRN ×2 (11:30→16:30)
--- NOTE | 2017-01-08 11:41 | PD ---
HPI Chief Complaint: Headache Time Seen by Provider: 10:58 Travel History International Travel<30 days: No Contact w/Intl Traveler<30days: No Traveled to known affect area: No History of Present Illness HPI Patient is a 71-year-old male presents to the emergency department for evaluation of headache and nausea vomiting. Patient has significant history of approximately week ago he fell and had a frontal subdural hematoma. He is followed by Dr. Posey. Patient states that 2 days ago he was at home and his headache was gradually getting better but then he had fairly intense right frontal headache which is now spread over the entire head but is substantially milder today. Patient states he took some of the hydrocodone that was prescribed to him and afterwards he felt nauseated. Denies any fever denies any focal weakness or visual difficulties. Denies abdominal pain. He and his called Dr. Posey's office who recommended he come up be seen here.. PFSH Past Medical History Hx Anticoagulant Therapy: No Arthritis: Yes (knee) Cancer: No Cardiovascular Problems: Yes (CHOL) High Cholesterol: Yes Diabetes: No Diminished Hearing: No Endocrine: No Gastrointestinal Disorders: Yes Hiatal Hernia: Yes Immune Disorder: No Musculoskeletal: Yes Neurologic: No Past Surgical History Other Surgery: Yes Social History Alcohol Use: No Tobacco Use: No Substance Use: No Allergies-Medications (Allergen,Severity, Reaction): Coded Allergies: Ceftin (Verified Allergy, Severe, 12/31/16) Reported Meds & Prescriptions Reported Meds & Active Scripts Active Zofran (Ondansetron HCl) 4 Mg Tab 4 Mg PO Q8HR PRN . [place] (Hydrocodone-Acetaminophen) 10-325 Mg Tab 1 Tab PO Q6H PRN Reported Flomax (Tamsulosin HCl) 0.4 Mg Cap 0.4 Mg PO HS Atorvastatin (Atorvastatin Calcium) 20 Mg Tab 20 Mg PO HS Omeprazole 20 Mg Tab 20 Mg PO DAILY Review of Systems Except as stated in HPI: all other systems reviewed are Neg Physical Exam Narrative GENERAL: Well-developed well-nourished no apparent distress] SKIN: Warm and dry. HEAD: Atraumatic. Normocephalic. EYES: Pupils equal and round. No scleral icterus. No injection or drainage. ENT: No nasal bleeding or discharge. Mucous membranes pink and moist. NECK: Trachea midline. No JVD. CARDIOVASCULAR: Regular rate and rhythm. No murmur appreciated. RESPIRATORY: No accessory muscle use. Clear to auscultation. Breath sounds equal bilaterally. GASTROINTESTINAL: Abdomen soft, non-tender, nondistended. Hepatic and splenic margins not palpable. Psoas and upper signs negative, no rebound no percussive tenderness. MUSCULOSKELETAL: No obvious deformities. No clubbing. No cyanosis. No edema. NEUROLOGICAL: Awake and alert and oriented 3, cranial nerves II through XII are grossly intact and nonfocal, 5 out of 5 strength in all 4 extremities, cerebellar testing negative. PSYCHIATRIC: Appropriate mood and affect; insight and judgment normal. Data Data Last Documented VS Vital Signs Date Time Temp Pulse Resp B/P Pulse Ox O2 Delivery O2 Flow Rate FiO2 01/08/17 12:15 58 23 148/[address] Brain W/O Iv Contrast(Rout) (01/08/17 ) Complete Blood Count With Diff (01/08/17 11:20) Comprehensive Metabolic Panel (01/08/17 11:20) Prothrombin Time / Inr (Pt) (01/08/17 11:20) Act Partial Throm Time (Ptt) (01/08/17 11:20) Ecg Monitoring (01/08/17 11:20) Iv Access Insert/Monitor (01/08/17 11:20) Oximetry (01/08/17 11:20) Sodium Chloride 0.9% Flush (Ns Flush) (01/08/17 11:30) Prochlorperazine Inj (Compazine Inj) (01/08/17 11:30) Diphenhydramine Inj (Benadryl Inj) (01/08/17 11:30) Sodium Chlor 0.9% 1000 Ml Inj (Ns 1000 M (01/08/17 11:20) Morphine Inj (Morphine Inj) (01/08/17 12:30) Consult Neurosurgery (01/08/17 ) Admit Order (Ed Use Only) (01/08/17 ) Labs Laboratory Tests Test 01/08/17 01/08/17 11:20 12:10 Prothrombin Time 11.4 SEC Prothromb Time International 1.0 RATIO Ratio Activated Partial 23.6 SEC Thromboplast Time Sodium Level 132 MEQ/L Potassium Level 3.7 MEQ/L Chloride Level 97 MEQ/L Carbon Dioxide Level 25.9 MEQ/L Anion Gap 9 MEQ/L Blood Urea Nitrogen 9 MG/DL Creatinine 0.99 MG/DL Estimat Glomerular Filtration 74 ML/MIN Rate Random Glucose 106 MG/DL Calcium Level 9.1 MG/DL Total Bilirubin 0.9 MG/DL Aspartate Amino Transf 16 U/L (AST/SGOT) Alanine Aminotransferase 38 U/L (ALT/SGPT) Alkaline Phosphatase 96 U/L Total Protein 7.4 GM/DL Albumin 3.7 GM/DL White Blood Count 6.4 TH/MM3 Red Blood Count 4.09 MIL/MM3 Hemoglobin 13.8 GM/DL Hematocrit 39.4 % Mean Corpuscular Volume 96.3 FL Mean Corpuscular Hemoglobin 33.7 PG Mean Corpuscular Hemoglobin 34.9 % Concent Red Cell Distribution Width 12.7 % Platelet Count 226 TH/MM3 Mean Platelet Volume 7.2 FL Neutrophils (%) (Auto) 78.6 % Lymphocytes (%) (Auto) 14.5 % Monocytes (%) (Auto) 5.9 % Eosinophils (%) (Auto) 0.3 % Basophils (%) (Auto) 0.7 % Neutrophils # (Auto) 5.0 TH/MM3 Lymphocytes # (Auto) 0.9 TH/MM3 Monocytes # (Auto) 0.4 TH/MM3 Eosinophils # (Auto) 0.0 TH/MM3 Basophils # (Auto) 0.0 TH/MM3 CBC Comment DIFF FINAL Differential Comment MDM Medical Decision Making Medical Screen Exam Complete: Yes Emergency Medical Condition: Yes Differential Diagnosis Acute on chronic bleed, post traumatic headache, medication reaction. Narrative Course Patient roomed in ED. Neurologically non-focal. Mild headache. Patient appears well. CT head: Last [address] 01/08/17 0000 Signed Impressions: Service Date/Time: Sunday, January 08, 2017 11:39 - CONCLUSION: RIGHT Subdural hematoma evolving into a hygroma with increasing mass effects. Deven Carson MD FACR Discussed with Dr. Carson who recommends emergent Neurosurgery consultation. Patient discussed with Dr. Negro who was able to contact Dr. Mack who is planning for surgical intervention. Discussed with patient who agrees for admission. Holding manitol for now. Critical Care Narrative Critical Care: The total critical care time was 30 minutes. Time to perform other separately billable procedures was not included in the critical care time. Diagnosis Primary Impression: Subdural hematoma Admitting Information Admitting Physician Requests: Admit Condition: Serious Ketan Carias MD Jan 08, 2017 11:41
[2017-01-08 11:55] LABS: APTT (PATIENT) 23.6 SEC (24.3-30.1); PROTHROMBIN TIME - PATIENT 11.4 SEC (9.8-11.6)
[2017-01-08 11:58] LABS: ANION GAP 9 MEQ/L (5-15); AST (GOT) 16 U/L (15-37); BICARBONATE 25.9 MEQ/L (21.0-32.0); BLOOD UREA NITROGEN 9 MG/DL (7-18); CHLORIDE 97 MEQ/L (98-107); GLOMERULAR FILTRATION RATE 74 ML/MIN (>89); POTASSIUM 3.7 MEQ/L (3.5-5.1); SODIUM (NA) 132 MEQ/L (136-145)
[2017-01-08 12:01] LABS: ALKALINE PHOSPHATASE 96 U/L (45-117); ALT (GPT) 38 U/L (12-78); TOTAL BILIRUBIN ADULT 0.9 MG/DL (0.2-1.0)
--- NOTE | 2017-01-08 12:01 | RADRPT ---
EXAM DATE/TIME: 01/08/2017 11:39 [facility] COMPARISON: CT BRAIN W/O CONTRAST, January 01, 2017, 4:44. INDICATIONS: Fall last week. Complains of headache. RADIATION DOSE: 46.77 CTDIvol (mGy) MEDICAL HISTORY: Cardiovascular disease. Subdural hematoma. SURGICAL HISTORY: None. ENCOUNTER: Initial ACUITY: 1 week PAIN SCALE: 3/10 LOCATION: Cranial TECHNIQUE: Multiple contiguous axial images were obtained of the head. Using automated exposure control and adj ustment of the mA and/or kV according to patient size, radiation dose was kept as low as reasonably a chievable to obtain optimal diagnostic quality images. FINDINGS: There is a 1.2 cm hygroma on the right with effacement of the cortical sulci and 8 mm of right to lef t shift. The left hemisphere is unremarkable, posterior fossa appears normal. There is still evidence for acu te blood products evident. The posterior fossa is unremarkable. CONCLUSION: RIGHT Subdural hematoma evolving into a hygroma with increasing mass effects. Deven Carson MD FACR on January 08, 2017 at 11:56 Board Certified Radiologist. This report was verified electronically.
[2017-01-08] MEDS ORDERED: PROPOFOL 200 MG/20 ML AMP IV ONE (12:14)
[2017-01-08] MEDS ORDERED: NEOSTIGMINE METHYLSULFATE 10 MG/10 ML VIAL IV PUSH ONE (12:15)
[2017-01-08] MEDS ORDERED: ePHEDrine/NS 25 MG/5 ML SYR IV ONE (12:15)
[2017-01-08] MEDS ORDERED: PHENYLEPH/NS 1000 MCG/10 ML SYR IV ONE (12:15)
[2017-01-08] MEDS ORDERED: ONDANSETRON HCL 4 MG/2 ML VIAL IV PUSH ONE (12:15)
[2017-01-08] MEDS ORDERED: NORMOSOL R INJ 1,000 ML IV ONE (12:16)
[2017-01-08 12:25] LABS: BASOPHIL % 0.7 % (0.0-2.0); EOSINOPHIL % 0.3 % (0.0-4.0); HEMATOCRIT 39.4 % (39.0-51.0); HEMO FLAGS DIFF FINAL; LYMPH % 14.5 % (9.0-44.0); LYMPHOCYTE # 0.9 TH/MM3 (1.0-4.8); MEAN CELL VOLUME 96.3 FL (80.0-100.0); MEAN CORPUSCULAR HEMOGLOBIN 33.7 PG (27.0-34.0); MEAN CORPUSCULAR HGB CONC 34.9 % (32.0-36.0); MONO % 5.9 % (0.0-8.0); NEUT % 78.6 % (16.0-70.0); PLATELET COUNT 226 TH/MM3 (150-450); RED BLOOD COUNT 4.09 MIL/MM3 (4.50-5.90); RED CELL DISTRIBUTION WIDTH 12.7 % (11.6-17.2); WHITE BLOOD COUNT 6.4 TH/MM3 (4.0-11.0)
[2017-01-08] MEDS ORDERED: MORPHINE SULFATE 4 MG/ML INJ IV PUSH ONE (12:30)
[2017-01-08] MEDS ORDERED: BUPIVACAINE/EPINEPHRINE 0.5% PF 30 ML VIAL ONE (13:58)
[2017-01-08] MEDS ORDERED: THROMBIN (TOPICAL) 5,000 UNIT VIAL ONE (13:58)
[2017-01-08] MEDS ORDERED: ceFAZolin INJ 1,000 MG VIAL ONE (13:59)
[2017-01-08] MEDS ORDERED: GELFOAM SIZE 100 ONE (13:59)
[2017-01-08] MEDS ORDERED: FUROSEMIDE 40 MG/4 ML VIAL ONE (13:59)
[2017-01-08] MEDS ORDERED: MANNITOL INJ 50 ML ONE (13:59)
[2017-01-08] MEDS ORDERED: GENTAMICIN SULFATE 80 MG/2 ML VIAL ONE ×2 (13:59→14:07)
[2017-01-08] MEDS ORDERED: VANCOMYCIN HCL 1000 MG VIAL ONE (14:00)
--- NOTE | 2017-01-08 14:53 | MH ---
cc: RAMILA CARRANZA M.D. DATE OF ADMISSION: 01/08/2017 ADMITTING DIAGNOSIS: Right frontotemporoparietal subdural hemorrhage. HISTORY OF PRESENT ILLNESS: This is a 71-year-old gentleman who initially was admitted on December 31, 2016 after a fall in his bathroom with a right-sided acute subdural hemorrhage which was stable on followup CT scan of the head. He also had unregulated hypertension which was controlled and he was subsequently discharged home. Over the last few days, the patient's headaches have worsened along with some nausea and vomiting and he called the office with these complaints and was referred to the emergency room. Followup CT scan of the head now reveals an enlarging right-sided subdural hemorrhage with a subacute and acute component along with some loculations and it has now increased in size about 1.2 cm with increasing midline shift of 8 mm from [id number]. PAST MEDICAL HISTORY: 1. Gastroesophageal reflux disease (GERD). 2. Hyperlipidemia. 3. Enlarged prostate. MEDICATIONS: 1. Flomax 0.4 mg at bedtime. 2. Atorvastatin 20 milligrams at bedtime. 3. Omeprazole 20 milligrams daily. 4. Lortab 10 / 325 one q. 6 hours PRN. 5. Zofran 4 milligrams q. 8 hours PRN. SOCIAL HISTORY: He is here with his . He denies any tobacco use and he drinks alcohol on an occasional basis. LABORATORY FINDINGS: White blood cell count 6.4, hemoglobin 13.8, platelet count 226,000. PT 11.4, INR 1.0, PTT 23.6. Sodium 132, potassium 3.7, BUN 9, creatinine 0.99, glucose 106. REVIEW OF SYSTEMS: the ER due to 07/03 REVIEW OF SYSTEMS: He complains of a worsening headache. Complains of nausea and vomiting. Denies any double vision or blurred vision. Denies any numbness or paresthesias in the upper or lower extremities. No chest pain or shortness of breath. No abdominal pain. No unsteadiness in his gait. He has not noticed any seizure-like activities. He does relate being diagnosed with a nodule between his sinuses and brain and [place] told him that this did not need to be removed and recommended a followup scan couple years. No history of easy bleeding or bruising. No fevers, chills. No recent weight gain or weight loss. PHYSICAL EXAMINATION: VITAL SIGNS: Pulse is 54, respiratory rate 15, blood pressure 130/60, oxygen saturation 98% on room air. HEAD: No Zarate's or raccoon sign. NECK: Neck is supple. CHEST: Clear bilaterally. HEART: Bradycardic, normal S1-S2. ABDOMEN: Soft, nontender. EXTREMITIES: No cyanosis or edema. NEUROLOGICAL EXAMINATION: He is awake, alert. Pupils are equal and reactive. Extraocular muscles intact. Face is symmetric. Tongue is midline. He moves all four extremities with good strength. Appreciates light touch sensation bilaterally. Negative Babinski. Speech fluent. IMPRESSION: Right frontotemporoparietal enlarging acute and subacute subdural hemorrhage with worsening mass effect and midline shift. PLAN: Recommended a right craniotomy for subdural hemorrhage evacuation. The risks and benefits involved have been discussed along with the option of continued conservative management. The patient and his are requesting that we proceed and accordingly this will be undertaken today. He will be subsequently admitted to the intensive care unit. Sequential compression devices will be used for DVT prophylaxis along with Protonix for gastrointestinal stress ulcer prophylaxis. MD MARIELENA Mckee/JOY /2:24 PM /2:33 PM
[2017-01-08] MEDS ORDERED: LABETALOL HCL 100 MG/20 ML VIAL IV PRN (16:30)
[2017-01-08] MEDS ORDERED: POTASSIUM CHLOR 20 MEQ PREMIX 100 ML IV PRN (16:30)
[2017-01-08] MEDS ORDERED: ALUMINUM/MAGNESIUM/SIMETH 30 ML CUP PO PRN (16:30)
[2017-01-08] MEDS ORDERED: MAGNESIUM SULFATE INJ 2 GM in SODIUM CHLORIDE 0.9% INJ 100 ML IV PRN (16:30)
[2017-01-08] MEDS ORDERED: ZOLPIDEM TARTRATE 5 MG TAB PO PRN (16:30)
[2017-01-08] MEDS ORDERED: LORazepam 2 MG/ML VIAL IVP PRN (16:30)
[2017-01-08] MEDS ORDERED: BISACODYL 10 MG SUPP PR PRN (16:30)
[2017-01-08] MEDS ORDERED: cloNIDine HCL 0.1 MG TAB PO PRN (16:30)
[2017-01-08] MEDS ORDERED: RESP: ALBUTEROL 2.5 MG/3 ML NEB (PRN) NEB (16:30)
[2017-01-08] MEDS ORDERED: METOCLOPRAMIDE HCL 10 MG/2 ML VIAL IVS PRN (16:30)
[2017-01-08] MEDS ORDERED: MAGNESIUM HYDROXIDE SUSP 30 ML CUP PO PRN (16:30)
[2017-01-08] MEDS ORDERED: MORPHINE SULFATE 4 MG/ML INJ IV PRN (16:30)
[2017-01-08] MEDS ORDERED: ACETAMINOPHEN/HYDROcodone 325 MG/10 MG TAB PO PRN (16:30)
[2017-01-08] MEDS ORDERED: MENTHOL LOZENGE SUCK-ON PRN (16:30)
[2017-01-08] MEDS ORDERED: CALCIUM GLUCONATE INJ 1 GM in SODIUM CHLORIDE 0.9% INJ 100 ML IV PRN (16:30)
--- NOTE | 2017-01-08 16:31 | PD.OP ---
Operative Report Date of Surgery: Jan 08, 2017 Preoperative Diagnosis: Right frontotemporal parietal acute/subacute progressively enlarging subdural hemorrhage Postoperative Diagnosis: Same Procedure: Right craniotomy for subdural hemorrhage evacuation Anesthesia: Gen. endotracheal by Estiven Barrera Surgeon: Rahat Posey M.D. Director Of Strategic Programs(s): [place] Operation and Findings: Following initiation of a general endotracheal anesthesia the patient had invasive lines and Scott catheter in place along with the sequential compression device. A gram of vancomycin was administered intravenously and he was positioned supine and head secured to a horseshoe headrest. The right side of the head shaved and prepped with ChloraPrep and sterilely draped in the usual sterile fashion. A linear incision the right frontotemporoparietal area was then made after infiltrating the scalp was 0.5% Marcaine with epinephrine solution a skin incision made extending onto the galea. Clary clips were used at the scalp edges for hemostasis and the flap retracted. With an automated instructional technology teacher a bur hole was made at the temporal aspect with craniotome the bone flap elevated exposing the frontotemporoparietal areas. Bone holes were placed with the craniotomy edges and 4-0 Nurolon dural tacking sutures placed for hemostasis. The dura was then opened in a cruciate format. Clotted and partially immobilized blackish brown is a subcutaneous hemorrhage was identified and evacuated using suction and biopsy forceps. No active bleeders were noted. The subdural space was thoroughly irrigated into the fluid was more clear. A 7 mm flat CARMEN drain was then placed in the subdural space and exited to the peripheral site and tunneled under the scalp with a separate exit site and secured with a 2-0 nylon tie and connected to a drainage bulb. The dura was approximated using 4 Nurolon interrupted sutures in a watertight fashion. The bone flap was then approximated using Warren mini plates. The area was then copiously irrigated. The galea reapproximated using 2-0 Vicryl interrupted stitches and finer scalp closure was with kallie. A sterile pressure dressing was then applied .There were no intraoperative complications and all sponge and needle count was correct at the end of the procedure. Estimated blood loss about 20 cc from the procedure itself. Patient was extubated and taken to the recovery room. Rahat Posey MD Jan 08, 2017 16:31
[2017-01-08] MEDS ORDERED: DO NOT ADM ANY ANTICOAGULANT DRUGS XX PRN (16:45)
[2017-01-08] MEDS ORDERED: SODIUM CHLOR 0.9% 250 ML INJ 250 ML ONE ×2 (16:58→20:37)
[2017-01-08] MEDS: levETIRAcetam INJ 500 MG in SODIUM CHLORIDE 0.9% INJ 100 ML IV SCH (17:00)
[2017-01-08] MEDS: niCARdipine INJ 25 MG in SODIUM CHLOR 0.9% 250 ML INJ 250 ML IV SCH ×3 (17:00→21:03)
[2017-01-08] MEDS: NS + KCL 20 MEQ INJ 1,000 ML IV SCH ×2 (17:00→21:07)
[2017-01-08] MEDS ORDERED: fentaNYL CITRATE 250 MCG/5 ML AMP ONE (17:05)
[2017-01-08] MEDS ORDERED: DIMETHICONE/OXYBENZONE/PADMIATE LIP BALM 4.25 GM ONE (17:07)
[2017-01-08] MEDS: DOCUSATE SODIUM 100 MG CAP PO SCH (21:02)
[2017-01-08] MEDS: SODIUM CHLORIDE 0.9% FLUSH 5 ML FLUSH IVF SCH (21:03)
[2017-01-09] VITALS (14 sets, daily range): BP systolic 126–156; BP diastolic 62–93; PULSE 53–70; RESP 16–27; TEMP 97.9–99.2; O2SAT 91–99
[2017-01-09] MEDS ORDERED: ATROPINE SULFATE 1 MG/10 ML SYRINGE ONE (03:37)
[2017-01-09] MEDS ORDERED: EPINEPHrine HCL (1:10,000) 1 MG/10 ML SYRINGE ONE (03:37)
[2017-01-09] MEDS ORDERED: LIDOCAINE HCL 2% 100 MG/5 ML SYRINGE ONE (03:37)
[2017-01-09 03:38] LABS: AUTOMATED NEUTROPHIL # 5.9 TH/MM3 (1.8-7.7); BASOPHIL % 0.3 % (0.0-2.0); EOSINOPHIL % 0.5 % (0.0-4.0); HEMATOCRIT 38.6 % (39.0-51.0); HEMO FLAGS DIFF FINAL; LYMPH % 11.8 % (9.0-44.0); LYMPHOCYTE # 0.9 TH/MM3 (1.0-4.8); MEAN CELL VOLUME 96.8 FL (80.0-100.0); MEAN CORPUSCULAR HGB CONC 34.1 % (32.0-36.0); MONO % 8.7 % (0.0-8.0); NEUT % 78.7 % (16.0-70.0); PLATELET COUNT 220 TH/MM3 (150-450); RED BLOOD COUNT 3.98 MIL/MM3 (4.50-5.90); RED CELL DISTRIBUTION WIDTH 12.9 % (11.6-17.2); WHITE BLOOD COUNT 7.4 TH/MM3 (4.0-11.0)
[2017-01-09] MEDS: levETIRAcetam INJ 500 MG in SODIUM CHLORIDE 0.9% INJ 100 ML IV SCH ×2 (04:02→17:00)
[2017-01-09 04:07] LABS: BICARBONATE 24.6 MEQ/L (21.0-32.0); MAGNESIUM 1.9 MG/DL (1.5-2.5); POTASSIUM 3.7 MEQ/L (3.5-5.1)
[2017-01-09] MEDS: ACETAMINOPHEN/HYDROcodone 325 MG/10 MG TAB PO PRN ×3 (04:34→17:00)
--- NOTE | 2017-01-09 05:40 | RADRPT ---
EXAM DATE/TIME: 01/09/2017 05:03 [facility] COMPARISON: No previous studies available for comparison. INDICATIONS : Follow up subdural hematoma. RADIATION DOSE: 56.35 CTDIvol (mGy) MEDICAL HISTORY : None SURGICAL HISTORY : Craniotomy. ENCOUNTER: Subsequent ACUITY: 2 weeks PAIN SCALE: 5/10 LOCATION: cranial TECHNIQUE: Multiple contiguous axial images were obtained of the head. Using automated exposure control and adj ustment of the mA and/or kV according to patient size, radiation dose was kept as low as reasonably a chievable to obtain optimal diagnostic quality images. FINDINGS: Previous right subdural hematoma has been drained with a subdural drain now present status post right craniotomy. There is some pneumocephalus anteriorly. Midline shift has decreased from about 8 mm to 2 mm. No new intracranial hemorrhage. CONCLUSION: 1. Placement of right-sided subdural drain with evacuation of right subdural hematoma. Trace residual hemorrhage and air remaining. Decrease in mass effect and midline shift as above. Chema Salinas MD on January 09, 2017 at 5:37 Board Certified Radiologist. This report was verified electronically.
--- NOTE | 2017-01-09 07:36 | HHI.NSPN ---
(Andrés Alvarez) History Chief Complaint: Incisional headache (Andrés Alvarez) Interval History This is a 71-year-old gentleman who initially was admitted on December 31, 2016 after a fall in his bathroom with a right-sided acute subdural hemorrhage which was stable on followup CT scan of the head. He also had unregulated hypertension which was controlled and he was subsequently discharged home. Over the last few days, the patient's headaches have worsened along with some nausea and vomiting and he called the office with these complaints and was referred to the emergency room. Followup CT scan of the head now reveals an enlarging right-sided subdural hemorrhage with a subacute and acute component along with some loculations and it has now increased in size about 1.2 cm with increasing midline shift of 8 mm from [id number]. 01/09/17: Pt awake and alert. Complains of incisional scalp discomfort. No nausea or vomiting. No paresthesias. Follows commands well. States feeling better. (Andrés Alvarez) Review of Systems General: Negative for: fever, chills, insomnia Respiratory: Negative for: shortness of breath, cough, sputum Cardiovascular: Negative for: chest pain Gastrointestinal: Negative for: nausea, vomitting, diarrhea, constipation ( Andrés Alvarez) Exam Results Vital Signs Date Time Temp Pulse Resp B/P Pulse Ox O2 Delivery O2 Flow Rate FiO2 01/09/17 07:00 98 Nasal Cannula 2.00 01/09/17 06:00 56 01/09/17 04:00 99.2 23 140/68 Intake and Output 01/08/17 01/08/17 01/09/17 08:00 16:00 00:00 Intake Total 2527 ml Output Total 3030 ml Balance -503 ml (Andrés Alvarez) Physical Examination Resp: CTA bilaterally Heart: NSR no murmurs Abd: Soft positive bs Skin: No cyanosis or erythema. CARMEN drain in place Bandage dry. Muscle: Moves all 4 extremities well. Neuro: Pt awake and alert. Follows commands well. Speech clear and appropriate. Pupils equal. (Andrés Alvarez) Lab, Micro, Other Results Last Impressions Head CT 01/09/17 0600 Signed Impressions: Service Date/Time: Monday, January 09, 2017 05:03 - CONCLUSION: 1. Placement of right-sided subdural drain with evacuation of right subdural hematoma. Trace residual hemorrhage and air remaining. Decrease in mass effect and midline shift as above. Chema Salinas MD Laboratory Tests Test 01/08/17 01/08/17 01/09/17 11:20 12:10 03:22 Prothrombin Time 11.4 SEC Prothromb Time International 1.0 RATIO Ratio Activated Partial 23.6 SEC Thromboplast Time Sodium Level 132 MEQ/L 136 MEQ/L Potassium Level 3.7 MEQ/L 3.7 MEQ/L Chloride Level 97 MEQ/L 103 MEQ/L Carbon Dioxide Level 25.9 MEQ/L 24.6 MEQ/L Anion Gap 9 MEQ/L 8 MEQ/L Blood Urea Nitrogen 9 MG/DL 6 MG/DL Creatinine 0.99 MG/DL 0.71 MG/DL Estimat Glomerular Filtration 74 ML/MIN 109 ML/MIN Rate Random Glucose 106 MG/DL 98 MG/DL Calcium Level 9.1 MG/DL 8.4 MG/DL Total Bilirubin 0.9 MG/DL Aspartate Amino Transf 16 U/L (AST/SGOT) Alanine Aminotransferase 38 U/L (ALT/SGPT) Alkaline Phosphatase 96 U/L Total Protein 7.4 GM/DL Albumin 3.7 GM/DL White Blood Count 6.4 TH/MM3 7.4 TH/MM3 Red Blood Count 4.09 MIL/MM3 3.98 MIL/MM3 Hemoglobin 13.8 GM/DL 13.2 GM/DL Hematocrit 39.4 % 38.6 % Mean Corpuscular Volume 96.3 FL 96.8 FL Mean Corpuscular Hemoglobin 33.7 PG 33.0 PG Mean Corpuscular Hemoglobin 34.9 % 34.1 % Concent Red Cell Distribution Width 12.7 % 12.9 % Platelet Count 226 TH/MM3 220 TH/MM3 Mean Platelet Volume 7.2 FL 7.1 FL Neutrophils (%) (Auto) 78.6 % 78.7 % Lymphocytes (%) (Auto) 14.5 % 11.8 % Monocytes (%) (Auto) 5.9 % 8.7 % Eosinophils (%) (Auto) 0.3 % 0.5 % Basophils (%) (Auto) 0.7 % 0.3 % Neutrophils # (Auto) 5.0 TH/MM3 5.9 TH/MM3 Lymphocytes # (Auto) 0.9 TH/MM3 0.9 TH/MM3 Monocytes # (Auto) 0.4 TH/MM3 0.6 TH/MM3 Eosinophils # (Auto) 0.0 TH/MM3 0.0 TH/MM3 Basophils # (Auto) 0.0 TH/MM3 0.0 TH/MM3 CBC Comment DIFF FINAL DIFF FINAL Differential Comment Magnesium Level 1.9 MG/DL 01/08/17 01/08/17 01/09/17 15:00 23:00 07:00 Intake Total 2527 ml 1180 ml Output Total 3030 ml 1100 ml Balance -503 ml 80 ml Intake Oral 300 ml 400 ml IV Total 727 ml 780 ml Other 1500 ml Output Urine Total 2800 ml 1050 ml Drainage Total 130 ml 50 ml Estimated Blood Loss 100 ml # Bowel Movements 0 0 (Andrés Alvarez) Medical Decision Making Impression and Plan A: 71 y/o M s/p right craniotomy for SDH evacuation. Follow up CT head improved with evacuated SDH with minimal remaining and reduced midline shift. P: Continue to monitor OOB to chair. Continue with CARMEN drain. (Andrés Alvarez) Attending Statement The exam, history, and the medical decision-making described in the above note were completed with the assistance of the mid-level provider. I reviewed and agree with the findings presented. I attest that I had a [id number] encounter with the patient on the same day, and personally performed and documented my assessment and findings in the medical record. Improved a follow- up CT scan of the head and overall feels much better. We'll DC subdural drain tomorrow morning and increase activity status as tolerated. He prefers to leave the Scott in for another day given his history of BPH and urinary urgency. (Rahat Posey MD) Andrés Alvarez Jan 09, 2017 07:35 Rahat Posey MD Jan 09, 2017 15:43
[2017-01-09] MEDS: SODIUM CHLORIDE 0.9% FLUSH 5 ML FLUSH IVF SCH ×2 (09:00→20:35)
[2017-01-09] MEDS: PANTOPRAZOLE SOD 40 MG DELAYED RELEASE TAB PO SCH (09:11)
[2017-01-09] MEDS: DOCUSATE SODIUM 100 MG CAP PO SCH ×2 (09:11→20:35)
[2017-01-09] MEDS ORDERED: ONDANSETRON ODT 4 MG TAB PO PRN (09:30)
[2017-01-09] MEDS ORDERED: PANTOPRAZOLE SOD 20 MG DELAYED RELEASE TAB PO SCH (09:30)
[2017-01-09] MEDS: ONDANSETRON HCL 4 MG/2 ML VIAL IV PRN ×2 (12:04→17:12)
[2017-01-09] MEDS: NS + KCL 20 MEQ INJ 1,000 ML IV SCH (17:00)
[2017-01-09] MEDS: TAMSULOSIN HCL 0.4 MG CAP PO SCH (20:35)
[2017-01-09] MEDS: ATORVASTATIN 20 MG TAB PO SCH (20:35)
[2017-01-10] VITALS (11 sets, daily range): BP systolic 130–176; BP diastolic 67–88; PULSE 50–84; RESP 18–21; TEMP 96.5–98.6; O2SAT 93–97
[2017-01-10] MEDS: ONDANSETRON HCL 4 MG/2 ML VIAL IV PRN (01:21)
[2017-01-10] MEDS: ACETAMINOPHEN/HYDROcodone 325 MG/10 MG TAB PO PRN (01:21)
[2017-01-10] MEDS: levETIRAcetam INJ 500 MG in SODIUM CHLORIDE 0.9% INJ 100 ML IV SCH ×2 (04:09→17:01)
[2017-01-10] MEDS: NS + KCL 20 MEQ INJ 1,000 ML IV SCH (05:44)
[2017-01-10] MEDS: ACETAMINOPHEN 325 MG TAB PO PRN ×3 (06:16→21:13)
[2017-01-10] MEDS ORDERED: LIDOCAINE 1%/EPINEPHrine 1:100,000 SOLN 20 ML VIAL INFIL ONE (07:30)
[2017-01-10] MEDS: DOCUSATE SODIUM 100 MG CAP PO SCH ×2 (09:29→21:06)
[2017-01-10] MEDS: PANTOPRAZOLE SOD 40 MG DELAYED RELEASE TAB PO SCH (09:29)
[2017-01-10] MEDS: SODIUM CHLORIDE 0.9% FLUSH 5 ML FLUSH IVF SCH ×2 (09:31→21:07)
--- NOTE | 2017-01-10 10:14 | HHI.NSPN ---
History Chief Complaint: Incisional headache Interval History This is a 71-year-old gentleman who initially was admitted on December 31, 2016 after a fall in his bathroom with a right-sided acute subdural hemorrhage which was stable on followup CT scan of the head. He also had unregulated hypertension which was controlled and he was subsequently discharged home. Over the last few days, the patient's headaches have worsened along with some nausea and vomiting and he called the office with these complaints and was referred to the emergency room. Followup CT scan of the head now reveals an enlarging right-sided subdural hemorrhage with a subacute and acute component along with some loculations and it has now increased in size about 1.2 cm with increasing midline shift of 8 mm from [id number]. 01/09/17: Pt awake and alert. Complains of incisional scalp discomfort. No nausea or vomiting. No paresthesias. Follows commands well. States feeling better. 01/10/17: Pt awake and alert. Had mild nausea this morning resolved now. No paresthesias. No weakness in extremities. Review of Systems General: Negative for: fever, chills, insomnia Respiratory: Negative for: shortness of breath, cough, sputum Cardiovascular: Negative for: chest pain Gastrointestinal: Negative for: nausea, vomitting, diarrhea, constipation Exam Results Vital Signs Date Time Temp Pulse Resp B/P Pulse Ox O2 Delivery O2 Flow Rate FiO2 01/10/17 07:21 19 01/10/17 06:00 54 01/10/17 04:00 97.9 132/74 95 01/09/17 21:20 21 01/09/17 19:00 Room Air 01/09/17 07:00 2.00 Intake and Output 01/09/17 01/09/17 01/10/17 08:00 16:00 00:00 Intake Total 1180 ml 1127 ml 1453 ml Output Total 1100 ml 525 ml 725 ml Balance 80 ml 602 ml 728 ml Physical Examination Resp: CTA bilaterally Heart: NSR no murmurs Abd: Soft positive bs Skin: No cyanosis or erythema. CARMEN drain in place Bandage dry. Muscle: Moves all 4 extremities well, with symmetric strength. Neuro: Pt awake and alert. Follows commands well. Speech clear and appropriate. Pupils equal. Lab, Micro, Other Results 01/09/17 01/09/17 01/10/17 15:00 23:00 07:00 Intake Total 1127 ml 1453 ml 896 ml Output Total 525 ml 725 ml 970 ml Balance 602 ml 728 ml -74 ml Intake Oral 450 ml 733 ml 240 ml IV Total 677 ml 720 ml 656 ml Output Urine Total 500 ml 700 ml 950 ml Drainage Total 25 ml 25 ml 20 ml # Bowel Movements 0 0 0 Medical Decision Making Impression and Plan A: 71 y/o M s/p right craniotomy for SDH evacuation. Follow up CT head improved with evacuated SDH with minimal remaining and reduced midline shift. P: Continue to monitor OOB and ambulate with assistance. D/C CARMEN drain. CARMEN exit site was cleaned with Betadine swabs. Lidocaine 1% with epi 2cc was injected for local anesthesia. CARMEN grenade suction was released. CARMEN drain removed. 2 kallie were placed. Sterile gauze was used for sterile field. Both needles and stapler were disposed of in sharps container. Pt tolerated well and there was no further drainage from CARMEN exit site. Andrés Alvarez Jan 10, 2017 10:14
[2017-01-10] MEDS: ATORVASTATIN 20 MG TAB PO SCH (21:06)
[2017-01-10] MEDS: TAMSULOSIN HCL 0.4 MG CAP PO SCH (21:06)
[2017-01-11] VITALS: BP 131/74; PULSE 64; RESP 20; TEMP 98.6; O2SAT 95
[2017-01-11] MEDS: ACETAMINOPHEN 325 MG TAB PO PRN ×2 (03:36→08:26)
[2017-01-11 04:00] VITALS: BP 135/79; PULSE 57; RESP 20; TEMP 97.1; O2SAT 95
[2017-01-11] MEDS: levETIRAcetam INJ 500 MG in SODIUM CHLORIDE 0.9% INJ 100 ML IV SCH (06:34)
[2017-01-11 08:00] VITALS: BP 148/79; PULSE 60; RESP 18; TEMP 95.9; O2SAT 96
[2017-01-11] MEDS: DOCUSATE SODIUM 100 MG CAP PO SCH (08:20)
[2017-01-11] MEDS: PANTOPRAZOLE SOD 40 MG DELAYED RELEASE TAB PO SCH (08:20)
--- NOTE | 2017-01-11 10:17 | HHI.NSPN ---
History Chief Complaint: Incisional headache Interval History This is a 71-year-old gentleman who initially was admitted on December 31, 2016 after a fall in his bathroom with a right-sided acute subdural hemorrhage which was stable on followup CT scan of the head. He also had unregulated hypertension which was controlled and he was subsequently discharged home. Over the last few days, the patient's headaches have worsened along with some nausea and vomiting and he called the office with these complaints and was referred to the emergency room. Followup CT scan of the head now reveals an enlarging right-sided subdural hemorrhage with a subacute and acute component along with some loculations and it has now increased in size about 1.2 cm with increasing midline shift of 8 mm from [id number]. 01/09/17: Pt awake and alert. Complains of incisional scalp discomfort. No nausea or vomiting. No paresthesias. Follows commands well. States feeling better. 01/10/17: Pt awake and alert. Had mild nausea this morning resolved now. No paresthesias. No weakness in extremities. 01/11/17: Pt awake and alert. Mild incisional discomfort he take Tylenol for. No nausea or vomiting. Pt ambulating independently to bathroom. Review of Systems General: Negative for: fever, chills, insomnia Respiratory: Negative for: shortness of breath, cough, sputum Cardiovascular: Negative for: chest pain Gastrointestinal: Negative for: nausea, vomitting, diarrhea, constipation Exam Results Vital Signs Date Time Temp Pulse Resp B/P Pulse Ox O2 Delivery O2 Flow Rate FiO2 01/11/17 08:00 95.9 60 18 148/79 96 01/11/17 07:00 Room Air 01/10/17 09:10 21 01/09/17 07:00 2.00 Intake and Output 01/10/17 01/10/17 01/11/17 08:00 16:00 00:00 Intake Total 896 ml 800 ml 240 ml Output Total 970 ml Balance -74 ml 800 ml 240 ml Physical Examination Resp: CTA bilaterally Heart: NSR no murmurs Abd: Soft positive bs Skin: No cyanosis or erythema. Incision clean and dry. No signs of infection. Muscle: Moves all 4 extremities well, with symmetric strength. Neuro: Pt awake and alert. Follows commands well. Speech clear and appropriate. Pupils equal. Lab, Micro, Other Results Last Impressions Head CT 01/09/17 0600 Signed Impressions: Service Date/Time: Monday, January 09, 2017 05:03 - CONCLUSION: 1. Placement of right-sided subdural drain with evacuation of right subdural hematoma. Trace residual hemorrhage and air remaining. Decrease in mass effect and midline shift as above. Chema Salinas MD 01/10/17 01/10/17 01/11/17 15:00 23:00 07:00 Intake Total 800 ml 240 ml Balance 800 ml 240 ml Intake Oral 200 ml 240 ml IV Total 600 ml # Voids 2 1 1 # Bowel Movements 1 0 0 Medical Decision Making Impression and Plan A: 71 y/o M s/p right craniotomy for SDH evacuation. Follow up CT head improved with evacuated SDH with minimal remaining and reduced midline shift. P: Discharge pt home Family at bedside feel comfortable taking care of pt. Discussed restrictions in detail Follow up with me on Wednesday for staple removal. Andrés Alvarez Jan 11, 2017 10:17
[2017-01-18] MEDS ORDERED: LEVE500 PO (12:52)
--- NOTE | 2017-02-14 19:54 | HHI.DS ---
Discharge Summary Admission Date Jan 08, 2017 at 13:27 Discharge Date: Jan 11, 2017 Admitting Diagnosis Subdural Hematoma (1) Subdural hematoma Diagnosis: Principal ICD Code: I62.00 (2) Dyslipidemia Diagnosis: Secondary ICD Code: E78.5 (3) Hypertension Diagnosis: Secondary ICD Code: I10 (4) Paresthesia Diagnosis: Secondary ICD Code: R20.2 Procedures Right craniotomy for subdural hemorrhage evacuation by Dr. Posey on 01/08/17. Brief History This is a 71-year-old male who initially was admitted on December 31, 2016 after a fall in his bathroom with a right-sided acute subdural hemorrhage which was stable on follow-up CT of the head. He also had unregulated hypertension which was controlled and he was subsequently discharged home. Over the last few days , the patient's headaches have worsened along with some nausea and vomiting and he called the office with these complaints and was referred to the emergency room. Follow-up CT of the head now reveals an enlarging right sided subdural hemorrhage with subacute and acute component along with some loculations and has now increased in size to about 1.2 cm with increase in midline shift of 8 mm from right to left. Imaging Follow-up CT of the head now reveals an enlarging right sided subdural hemorrhage with subacute and acute component along with some loculations and has now increased in size to about 1.2 cm with increase in midline shift of 8 mm from right to left. Hospital Course Patient underwent the above-noted procedure performed by Dr. Posey. There was no intraoperative complications. Postoperatively the patient was admitted to the ICU for close hemodynamic and neurologic monitoring. Patient's follow-up CT of the head was improved postoperatively. Patient's activity status was increased with physical therapy was consulted. His Scott catheter was discontinued. His CARMEN drain was discontinued. Patient was discharged home in stable condition. Pt Condition on Discharge: Stable Discharge Disposition: Discharge Home Discharge Instructions DIET: Follow Instructions for: As Tolerated, No Restrictions ACTIVITIES You can perform: Shower Only-No Bath Activities to Avoid: Contact Sports, Lifting/Bending, Strenuous Activity, Bathing, Driving Continued Medications: Atorvastatin (Atorvastatin) 20 Mg Tab 20 MG PO DAILY Cholesterol Management #30 Ref 0 TAB Omeprazole (Omeprazole) 20 Mg Tab 20 MG PO DAILY #30 Ref 0 TAB Tamsulosin (Flomax) 0.4 Mg Cap 0.4 MG PO HS Manage Prostate Problems #30 Ref 0 CAP Andrés Alvarez Feb 14, 2017 19:54
== END 2017-01-11 11:23 | disposition home or self-care (01) | DRG 27 ==
LOC: NEPA 10:38 → NEDA 13:27 → N03B 17:58 → N05B 01-10 16:12
PROVIDERS: ADMIT Neurological Surgery; ATTEND Neurological Surgery
PROC: 00C40ZZ Extirpation of Matter from Intracranial Subdural Space, Open Approach (ICD-10-PCS; principal; 2017-01-08 14:21)
DX: S06.5X0A Traumatic subdural hemorrhage without loss of consciousness, initial encounter (principal); E78.5 Hyperlipidemia, unspecified; K21.9 Gastro-esophageal reflux disease without esophagitis; N40.0 Benign prostatic hyperplasia without lower urinary tract symptoms; W19.XXXA Unspecified fall, initial encounter; Y92.002 Bathroom of unspecified non-institutional (private) residence as the place of occurrence of the external cause; Z88.1 Allergy status to other antibiotic agents
CPT/HCPCS: 70450; 80048; 80053; 83735; 85025; 85610; 85730; 94150; 96361; 96374; 96375; C1713; J0171; J0461; J0690; J0780; J1200; J1580; J1940; J1953; J2150; J2270; J2370; J2405; J2710; J3010; J3370; J3475; J3480; J7030; J7050

== ENCOUNTER 2017-01-14 18:03 | Emergency (ER) | payer MEDICARE, BC ==
[~2017-01-14] VITALS: Ht 188 cm; Wt 104.0 kg
[2017-01-14 18:05] VITALS: BP 161/94; PULSE 81; RESP 16; TEMP 98.2; O2SAT 98
--- NOTE | 2017-01-14 18:36 | PD ---
HPI Chief Complaint: Neuro Symptoms/ Deficits Time Seen by Provider: 18:36 Travel History International Travel<30 days: No Contact w/Intl Traveler<30days: No Traveled to known affect area: No History of Present Illness HPI 71-year-old male visiting from [facility] process the emergency Department with episode of left hand numbness and fumbling while eating a steak dinner this evening. Patient has a significant history of acute brain hemorrhage one week ago tomorrow, requiring surgery by Dr. Posey on 08 January. Patient states he's been doing well until he was at the restaurant and noticed that his left hand felt numb in his thumb and second finger with some mild weakness which lasted approximately 5 minutes. Patient states now he is completely back to normal. He denies any headache or other neurologic symptoms currently. He came in to get evaluated. He is allergic to Ceftin. PFSH Past Medical History Hx Anticoagulant Therapy: No Arthritis: Yes (knee) Cancer: No Cardiovascular Problems: Yes (CHOL) High Cholesterol: Yes Diabetes: No Diminished Hearing: No Endocrine: No Gastrointestinal Disorders: Yes Hiatal Hernia: Yes Immune Disorder: No Musculoskeletal: Yes Neurologic: Yes (SUBDURAL HEMATOMA/BLEED) Past Surgical History Other Surgery: Yes Social History Alcohol Use: Yes (OCC.) Tobacco Use: No Substance Use: No Allergies-Medications (Allergen,Severity, Reaction): Coded Allergies: Ceftin (Verified Allergy, Severe, 01/14/17) Reported Meds & Prescriptions Reported Meds & Active Scripts Active Reported Flomax (Tamsulosin HCl) 0.4 Mg Cap 0.4 Mg PO HS Atorvastatin (Atorvastatin Calcium) 20 Mg Tab 20 Mg PO DAILY Omeprazole 20 Mg Tab 20 Mg PO DAILY Review of Systems Except as stated in HPI: all other systems reviewed are Neg General / Constitutional: No: Fever Eyes: No: Visual changes HENT: No: Headaches Cardiovascular: No: Chest Pain or Discomfort Respiratory: No: Shortness of Breath Gastrointestinal: No: Abdominal Pain Genitourinary: No: Dysuria Musculoskeletal: No: Pain Skin: No Rash Neurologic: Positive: Weakness, Paresthesia Psychiatric: No: Depression Endocrine: No: Polydipsia Hematologic/Lymphatic: No: Easy Bruising Physical Exam Narrative GENERAL: Patient appears in no acute distress. SKIN: Warm and dry. Normal color. Normal turgor. Well healing incision to the right anterior lateral parietal region with kallie in place. HEAD: Atraumatic. Normocephalic. EYES: Pupils equal and round. No scleral icterus. No injection or drainage. ENT: No nasal bleeding or discharge. Mucous membranes pink and moist. Pharynx is normal. Airway is patent. NECK: Trachea midline. No JVD. Neck is supple and nontender. CARDIOVASCULAR: Regular rate and rhythm. RESPIRATORY: No accessory muscle use. Clear to auscultation. Breath sounds equal bilaterally. GASTROINTESTINAL: Abdomen soft, non-tender, nondistended. Hepatic and splenic margins not palpable. MUSCULOSKELETAL: Extremities without clubbing, cyanosis, or edema. No obvious deformities. NEUROLOGICAL: Awake and alert. No obvious cranial nerve deficits. Motor grossly within normal limits. Five out of 5 muscle strength in the arms and legs. Normal speech. PSYCHIATRIC: Appropriate mood and affect; insight and judgment normal. Data Data Last Documented VS Vital Signs Date Time Temp Pulse Resp B/P Pulse Ox O2 Delivery O2 Flow Rate FiO2 01/14/17 18:44 96 24 171/85 97 Room Air 01/14/17 18:05 98.2 MDM Medical Decision Making Medical Screen Exam Complete: Yes Emergency Medical Condition: Yes Differential Diagnosis Recent intracranial bleed requiring surgery. Episode of left hand numbness and weakness. Possible TIA versus recurrent bleed. Narrative Course Patient is medically stable at time of exam. Prior to extensive workup a call was placed to Dr. Posey to discuss the patient as he is 6 days postop. 1905 hrs. patient was discussed with Dr. Posey, who felt CT scan, an extensive workup was not warranted at this time. He recommended placing the patient on Keppra 250 mg twice a day. Patient was given 500 mg by mouth now. Patient is continued on Keppra 250 twice a day as recommended by Dr. Posey, and will follow-up with his office tomorrow as currently scheduled. Diagnosis Primary Impression: Subdural hematoma Additional Impression: Paresthesia Referrals: Rahat Posey MD Patient Instructions: General Instructions Additional Instructions: Patient was discussed with Dr. Posey, who felt CT scan, an extensive workup was not warranted at this time. He recommended placing the patient on Keppra 250 mg twice a day. Patient was given 500 mg by mouth now. Patient is continued on Keppra 250 twice a day as recommended by Dr. Posey, and will follow-up with his office tomorrow as currently scheduled. Med/Other Pt SpecificInfo: Prescription(s) given Disposition: 01 DISCHARGE HOME Condition: Stable Sam Holman Jan 14, 2017 18:36
[2017-01-14 18:44] VITALS: BP 171/85; PULSE 96; RESP 24; O2SAT 97
[2017-01-14] MEDS ORDERED: LEVE250 PO (19:13)
[2017-01-14] MEDS ORDERED: levETIRAcetam 500 MG TAB PO ONE (19:15)
[2017-01-18] MEDS ORDERED: LEVE500 PO (12:52)
== END 2017-01-14 20:01 | disposition home or self-care (01) ==
LOC: NEPE 18:03
DX: I62.00 Nontraumatic subdural hemorrhage, unspecified (principal); R53.1 Weakness
CPT/HCPCS: 99283